=== PATIENT | male | born 1960 | race Caucasian/White ===

== ENCOUNTER 2016-05-04 01:14 | Emergency (ER) | payer BC ==
[~2016-05-04 01:14] MED LIST: FISH1000 PO; LISI-538 PO; TYLE325T5 PO; VITA100066 PO
[2016-05-04] MEDS ORDERED: MORPHINE 4 MG/ML 1ML SYRINGE As Ordered ONE ×2 (02:26→05:21)
[2016-05-04] MEDS ORDERED: ONDANSETRON 4MG/2ML VIAL (J2405) As Ordered ONE (02:26)
[2016-05-04 02:34] LABS: BASO # 0.1 K/mm3 (0.0-0.2); BASO % 0.6 % (0.0-1.0); EOS # 0.2 K/mm3 (0.0-0.50); EOS % 1.8 % (0.0-3.0); LARGE UNSTAINED CELL # 0.1 K/mm3 (0.0-0.4); LARGE UNSTAINED CELL % 1.4 % (0.0-4.0); LYMPH # 0.9 K/mm3 (1.5-4.5); LYMPH % 8.9 % (24.0-44.0); MEAN CORPUSCULAR HEMOGLOBIN 27.8 pg (27.0-33.0); MEAN CORPUSCULAR HGB CONC 32.8 g/dl (32.0-36.5); MEAN CORPUSCULAR VOLUME 84.7 fl (80.0-96.0); MONO # 0.5 K/mm3 (0.0-0.8); NEUTROPHILS # 7.8 K/mm3 (1.8-7.7); NEUTROPHILS % 82.3 % (36.0-66.0); PLATELET COUNT, AUTOMATED 255 k/mm3 (150-450); WHITE BLOOD COUNT 9.5 K/mm3 (4.0-10.0)
[2016-05-04 02:42] LABS: INR 0.99
[2016-05-04 02:56] LABS: ALBUMIN 3.9 GM/DL (3.2-5.2); ALBUMIN/GLOBULIN RATIO 0.98 (1.00-1.93); ALKALINE PHOSPHATASE 143 U/L (45-117); ALT/SGPT 34 U/L (12-78); AMYLASE 58 U/L (25-115); ANION GAP 9 MEQ/L (8-16); AST/SGOT 35 U/L (15-37); BILIRUBIN,DIRECT 0.1 MG/DL (0.0-0.2); BILIRUBIN,TOTAL 0.4 MG/DL (0.2-1.0); BLOOD UREA NITROGEN 12 MG/DL (7-18); CALCIUM LEVEL 8.7 MG/DL (8.5-10.1); CARBON DIOXIDE LEVEL 26 MEQ/L (21-32); CHLORIDE LEVEL 103 MEQ/L (98-107); CREATININE FOR GFR 0.96 MG/DL (0.70-1.30); GLOMERULAR FILTRATION RATE > 60.0 (>56); GLUCOSE, FASTING 158 MG/DL (70-105); POTASSIUM SERUM 4.2 MEQ/L (3.5-5.1); SODIUM LEVEL 138 MEQ/L (136-145); TOTAL PROTEIN 7.9 GM/DL (6.4-8.2)
[2016-05-04] MEDS ORDERED: ISOVUE-370 76% 100ML VIAL (Q9967) As Ordered ONE (04:34)
--- NOTE | 2016-05-04 06:00 | REPUSA ---
CLINICAL HISTORY: Abdominal pain. TECHNIQUE: Multiple axial, sagittal and coronal CT images were obtained through the abdomen and pelvi s after administration of oral and intravenous contrast material. COMMENTS: The liver is mildly enlarged with decreased attenuation without mass or defect. There is no intra or extrahepatic biliary ductal dilatation. The spleen is normal. The gallbladder is within normal limits . The pancreas is of normal contour and attenuation characteristics. There is no evidence of adrenal mass. Both kidneys demonstrate prompt and equal nephrograms. The kidneys are normal in size, shape and conf iguration. There is no evidence of renal or ureteral mass. No renal or ureteral calculi are identifie d. There is no hydroureter or hydronephrosis. No evidence for appendicitis. There is no bowel wall thickening. No evidence for small or large rand l obstruction. Moderate enlargement of mesenteric lymph nodes with the largest measuring 5.3 cm. Mode rately enlarged retroperitoneal lymph nodes the largest measuring 4.1 cm. Peripancreatic enlarged lym ph nodes. The largest measures 3.2 cm. There is no evidence of intrinsic or extrinsic bladder mass. There is no pelvic ascites or lymphadeno zoey. Uncomplicated clonic diverticulosis. Bilateral fat containing inguinal hernias without incarce ration. Small amount of free fluid in the left inguinal hernia. Images of the lung bases show no evidence of pleural or parenchymal mass. There are no pleural effusi ons. Bilateral basilar atelectatic pulmonary changes. The bony structures are free of lytic or blastic lesions. Multilevel degenerative changes are seen in volving the thoracolumbar spine. Scattered calcifications are seen involving the aorta and major bran ches compatible with atherosclerosis. IMPRESSION: Mild hepatomegaly with fat infiltration. Moderate-sized central mesenteric, peripancreatic and retroperitoneal lymphadenopathy. Central mesenteric thickening and fat stranding. Uncomplicated chronic diverticulosis. Thank you for your kind referral of this patient.
--- NOTE | 2016-05-04 08:08 | EDDOCDS ---
Nurse's Notes [facility] Name: Marcell Prieto Age: 55 yrs Sex: Male : 1960 Arrival Date: 05/04/2016 Time: 01:14 Bed 17 Private MD: Diagnosis: Retention of urine Presentation: 05/04 01:19 Presenting complaint: Patient states: abdominal pain since yesterday afternoon no cz relief with morphine tabs history on lesions which have gotten larger pt is due for another biopsy. Adult Sepsis Screening: The patient does not have new or worsening altered mentation. Patient's respiratory rate is less than 22. Systolic blood pressure is greater than 100. Patient has a qSOFA score of 0- Negative Sepsis Screen. Suicide/Homicide risk assessment- the patient denies having any suicidal and/or homicidal ideations and does not present with any other emotional, behavioral or mental health complaints. Status: Patient is not a alarm service technician or dependent. Transition of care: patient was not received from another setting of care. 01:19 Acuity: MERCEDEZ Level 3 cz 01:19 Method Of Arrival: Walkin/Carried/Asstd cz Triage Assessment: 01:24 General: Appears uncomfortable. Pain: Location: abdomen Pain currently is 10 out of 10 cz on a pain scale. HIV screening NA for this visit Offered previously. Historical: - Allergies: No known drug Allergies; - Home Meds: 1. lisinopril 20 mg Oral tab 1 tab once daily 2. morphine 15 mg Oral tab every 4 hours (Last dose: 05/03/2016 23:00) - PMHx: Hypertension; abdominal lesions; - PSHx: biopsy; - Social history: Smoking status: Patient states was never smoker of tobacco. No barriers to communication noted, The patient speaks fluent Setswana, Speaks appropriately for age. - Family history: Not pertinent. - : The pt / caregiver states he / she is not on anticoagulants. Home medication list is obtained from the patient. - Exposure Risk Screening:: None identified. Screenin:36 Screening information is obtained from the patient. Fall risk: No risks identified. lf1 Assistance ADL's: requires no assistance with activities of daily living. Abuse/DV Screen: The patient / caregiver reports he/she is: not in a situation that causes fear, pain or injury. 05:16 Nutritional screening: No deficits noted. lf1 07:53 Advance Directives: There is no active DNR order. home support is adequate. js13 Assessment: 02:36 General: Appears uncomfortable, Behavior is cooperative. Pain: Location: abdomen Pain lf1 currently is 10 out of 10 on a pain scale. Neurological: Level of Consciousness is awake, alert. EENT: No deficits noted. Cardiovascular: Chest pain is denied. Respiratory: Respiratory effort is even, unlabored. GI: Abdomen is non- distended Bowel sounds present X 4 quads. Abd is soft Abd is tender to palpation in right upper quadrant, left upper quadrant, right lower quadrant and left lower quadrant Reports lower abdominal pain, upper abdominal pain, nausea, Denies diarrhea. : Reports Difficulty starting and stopping. Derm: Skin is normal. 03:30 General: Appears in no apparent distress, comfortable. Respiratory: Respiratory effort lf1 is even, unlabored. 05:16 General: Appears in no apparent distress, comfortable, Behavior is cooperative. Pain: lf1 Location: abdomen Pain currently is 5 out of 10 on a pain scale. Neurological: Level of Consciousness is awake, alert, Oriented to person, place, time. Respiratory: Respiratory effort is even, unlabored. : Reports he has been unable to provide urine sample. 06:36 General: Appears in no apparent distress, comfortable, Behavior is cooperative. Pain: lf1 Location: abdomen and back. 06:40 Neurological: Level of Consciousness is awake, alert. Respiratory: Respiratory effort lf1 is even, unlabored. GI: Denies nausea, vomiting. 08:04 General: Appears in no apparent distress, comfortable, Behavior is appropriate for age, js13 cooperative. Pain: Pain currently is 2 out of 10 on a pain scale. Neurological: Level of Consciousness is awake, alert. Cardiovascular: Chest pain is denied. Respiratory: Airway is patent Respiratory effort is even, unlabored. : Catheter in place and patient will be discharged with it in. Derm: Skin is pink, warm & dry. Vital Signs: 01:24 BP 138 / 97; Pulse 87; Resp 16; Temp 95.9(T); Pulse Ox 96% on R/A; Weight 90.72 kg; cz Height 5 ft. 9 in. (175.26 cm); 02:36 BP 124 / 76; Pulse 78; Resp 18; Pulse Ox 98% ; Pain 10/10; lf1 05:07 BP 131 / 84; Pulse 72; Resp 20; Temp 97.6(O); Pulse Ox 94% on R/A; Pain 5/10; jmv 07:53 BP 128 / 78; Pulse 76; Resp 16; Temp 97.8(O); Pulse Ox 98% on R/A; js13 01:24 Body Mass Index 29.53 (90.72 kg, 175.26 cm) Vitals: 01:24 Log In Time: May 04, 2016 at 01:14. cz ED Course: 01:16 Patient visited by Nohemi Muhammad. gjb 01:16 Patient moved to Waiting gjb 01:22 Triage Initiated cz 01:25 Patient moved to 17 cz 01:49 Kj Arizmendi DO is Attending Physician. mm11 01:49 Patient visited by Kj Arizmendi DO. mm11 02:07 Patient visited by Kj Arizmendi DO. mm11 02:17 Prothrombin Time Profile\E\INR Sent. lf1 02:17 Partial Thromboplastin Time Sent. lf1 02:17 Liver Profile Sent. lf1 02:17 Lipase Sent. lf1 02:17 CBC with Diff Sent. lf1 02:19 Basic Metabolic Profile Sent. lf1 02:19 Amylase Sent. lf1 02:36 Inserted saline lock: 20 gauge in left antecubital area and blood collected. The lf1 patient tolerated the procedure well. Labs drawn. (by ED staff). Sent per order to lab. 02:39 Patient visited by Gely Aguirre RN. lf1 03:50 Patient visited by Kj Arizmendi DO. mm11 05:08 Patient visited by Isaiah Interiano PCA. jmv 05:16 The patient / caregiver is instructed regarding the plan of care and ED course. lf1 05:28 Patient visited by Gely Aguirre RN. lf1 05:31 [facility] Payment Agreement was scanned into [employer] and attached to record. gjb 06:11 CT ABD & PELVIS: IV Contrast Only Returned. EDMS 06:38 Bladder Scan completed Results: 907 ML - provider notified. lf1 06:41 Patient visited by Gely Aguirre RN. lf1 06:56 Urinalysis Sent. cp1 06:56 Urine Culture Sent. cp1 06:57 Patient visited by Mayela Becerra LPN. cp1 06:57 Khan cath inserted 16 Fr. Balloon inflated. To gravity drainage. Urine specimen cp1 collected. 07:05 Report given to Megan Tejada RN. lf1 07:46 Patient visited by Kj Arizmendi DO. mm11 07:47 Hardy Raymond is Referral Physician. mm11 07:53 Discontinued IV lock intact, bleeding controlled, pressure dressing applied, No js13 redness/swelling at site. No procedures done that require assistance. Administered Medications: 02:35 Drug: NS 0.9% 1000 ml [sodium chloride 0.9 % intravenous solution] Route: IV; Rate: lf1 bolus; Site: left antecubital; 05:17 Follow up: IV Status: Completed infusion; IV Intake: 1000ml 1 02:36 Drug: Ondansetron 4 mg [ondansetron HCl 2 mg/mL intravenous solution (2 mL)] Route: lf1 IVP; Site: left antecubital; 05:17 Follow up: Response: Nausea is resolved lf1 02:36 Drug: morphine 4 mg [morphine 4 mg/mL intravenous cartridge (1 mL)] Route: IVP; Site: lf1 left antecubital; 03:30 Follow up: Response: Pain is decreased 1 05:28 Drug: morphine 4 mg [morphine 4 mg/mL intravenous cartridge (1 mL)] Route: IVP; Site: 1 left antecubital; Intake: 05:17 IV: 1000.00ml; Total: 1000.00ml. lf1 Order Results: Lab Order: Amylase; SPEC'M 05/04/16 02:15 Test: AMYLASE; Value: 58; Range: 25-115; Units: U/L; Status: F Lab Order: Basic Metabolic Profile; SPEC'M 05/04/16 02:15 Test: GLUCOSE, FASTING; Value: 158; Range: 70-105; Abnormal: Above high normal; Units: MG/DL; Status: F Test: BLOOD UREA NITROGEN; Value: 12; Range: 7-18; Units: MG/DL; Status: F Test: CREATININE FOR GFR; Value: 0.96; Range: 0.70-1.30; Units: MG/DL; Status: F Test: GLOMERULAR FILTRATION RATE; Value: > 60.0; Range: >56; Status: F Test: SODIUM LEVEL; Value: 138; Range: 136-145; Units: MEQ/L; Status: F Test: POTASSIUM SERUM; Value: 4.2; Range: 3.5-5.1; Units: MEQ/L; Status: F Test: CHLORIDE LEVEL; Value: 103; Range: 98-107; Units: MEQ/L; Status: F Test: CARBON DIOXIDE LEVEL; Value: 26; Range: 21-32; Units: MEQ/L; Status: F Test: ANION GAP; Value: 9; Range: 8-16; Units: MEQ/L; Status: F Test: CALCIUM LEVEL; Value: 8.7; Range: 8.5-10.1; Units: MG/DL; Status: F Test Note: ; Units are mL/min/1.73 m2 Chronic Kidney Disease Staging per NKF: Stage I & II GFR >=60 Normal to Mildly Decreased Stage III GFR 30-59 Moderately Decreased Stage IV GFR 15-29 Severely Decreased Stage V GFR <15 Very Little GFR Left ESRD GFR <15 on MANAGER OF [employer]TER[employer]ISE Lab Order: CBC with Diff; SPEC'M 05/04/16 02:14 Test: WHITE BLOOD COUNT; Value: 9.5; Range: 4.0-10.0; Units: K/mm3; Status: F Test: RED BLOOD COUNT; Value: 5.38; Range: 4.30-6.10; Units: M/mm3; Status: F Test: HEMOGLOBIN; Value: 15.0; Range: 14.0-18.0; Units: g/dl; Status: F Test: HEMATOCRIT; Value: 45.5; Range: 42.0-52.0; Units: %; Status: F Test: MEAN CORPUSCULAR VOLUME; Value: 84.7; Range: 80.0-96.0; Units: fl; Status: F Test: MEAN CORPUSCULAR HEMOGLOBIN; Value: 27.8; Range: 27.0-33.0; Units: pg; Status: F Test: MEAN CORPUSCULAR HGB CONC; Value: 32.8; Range: 32.0-36.5; Units: g/dl; Status: F Test: RED CELL DISTRIBUTION WIDTH; Value: 13.0; Range: 11.5-14.5; Units: %; Status: F Test: PLATELET COUNT, AUTOMATED; Value: 255; Range: 150-450; Units: k/mm3; Status: F Test: NEUTROPHILS %; Value: 82.3; Range: 36.0-66.0; Abnormal: Above high normal; Units: %; Status: F Test: LYMPH %; Value: 8.9; Range: 24.0-44.0; Abnormal: Below low normal; Units: %; Status: F Test: MONO %; Value: 5.0; Range: 0.0-5.0; Units: %; Status: F Test: EOS %; Value: 1.8; Range: 0.0-3.0; Units: %; Status: F Test: BASO %; Value: 0.6; Range: 0.0-1.0; Units: %; Status: F Test: LARGE UNSTAINED CELL %; Value: 1.4; Range: 0.0-4.0; Units: %; Status: F Test: NEUTROPHILS #; Value: 7.8; Range: 1.8-7.7; Abnormal: Above high normal; Units: K/mm3; Status: F Test: LYMPH #; Value: 0.9; Range: 1.5-4.5; Abnormal: Below low normal; Units: K/mm3; Status: F Test: MONO #; Value: 0.5; Range: 0.0-0.8; Units: K/mm3; Status: F Test: EOS #; Value: 0.2; Range: 0.0-0.50; Units: K/mm3; Status: F Test: BASO #; Value: 0.1; Range: 0.0-0.2; Units: K/mm3; Status: F Test: LARGE UNSTAINED CELL #; Value: 0.1; Range: 0.0-0.4; Units: K/mm3; Status: F Lab Order: Lipase; SPEC'M 05/04/16 02:15 Test: LIPASE; Value: 159; Range: 73-393; Units: U/L; Status: F Lab Order: Liver Profile; SPEC'05/04/16 02:15 Test: AST/SGOT; Value: 35; Range: 15-37; Units: U/L; Status: F Test: ALT/SGPT; Value: 34; Range: 12-78; Units: U/L; Status: F Test: ALKALINE PHOSPHATASE; Value: 143; Range: 45-117; Abnormal: Above high normal; Units: U/L; Status: F Test: BILIRUBIN,TOTAL; Value: 0.4; Range: 0.2-1.0; Units: MG/DL; Status: F Test: BILIRUBIN,DIRECT; Value: 0.1; Range: 0.0-0.2; Units: MG/DL; Status: F Test: TOTAL PROTEIN; Value: 7.9; Range: 6.4-8.2; Units: GM/DL; Status: F Test: ALBUMIN; Value: 3.9; Range: 3.2-5.2; Units: GM/DL; Status: F Test: ALBUMIN/GLOBULIN RATIO; Value: 0.98; Range: 1.00-1.93; Abnormal: Below low normal; Status: F Lab Order: Partial Thromboplastin Time; [facility] 05/04/16 02:14 Test: PARTIAL THROMBOPLASTIN TIME; Value: 28.1; Range: 26.6-37.1; Units: SECONDS; Status: F Lab Order: Prothrombin Time Profile\E\INR; [facility] 05/04/16 02:14 Test: PROTHROMBIN TIME; Value: 13.2; Range: 12.3-14.5; Units: SECONDS; Status: F Test: INR; Value: 0.99; Status: F Test Note: ; THERAPUTIC HUMAN INR VALUES INDICATIONS NORMAL RANGES PROPHYLAXIS/TREATMENT OF: VENOUS THROMBOSIS 2.0-3.0 PULMONARY EMBOLISM 2.0-3.0 PREVENTION OF SYSTEMIC EMBOLISM FROM: TISSUE HEART VALVES 2.0-3.0 ACUTE MYOCARDIAL INFARCTION 2.0-3.0 VALVULAR HEART DISEASE 2.0-3.0 ATRIAL FIBRILLATION 2.0-3.0 MECHANICAL VALVES(HIGH RISK) 2.5-3.5 RECURRENT MYOCARDIAL INFARCTION 2.5-3.5 Lab Order: Urinalysis; [facility]/04[facility] 06:52 Test: APPEARANCE, URINE; Value: CLEAR; Range: CLEAR; Status: F Test: COLOR, URINE; Value: YELLOW; Range: YELLOW; Status: F Test: PH,URINE; Value: 5.0; Range: 5.0-9.0; Units: UNITS; Status: F Test: SPECIFIC GRAVITY URINE AUTO; Value: 1.019; Range: 1.002-1.035; Status: F Test: PROTEIN, URINE AUTO; Value: NEGATIVE; Range: NEGATIVE; Units: mg/dL; Status: F Test: GLUCOSE, URINE (UA) AUTO; Value: NEGATIVE; Range: NEGATIVE; Units: mg/dL; Status: F Test: KETONE, URINE AUTO; Value: NEGATIVE; Range: NEGATIVE; Units: mg/dL; Status: F Test: UROBILINOGEN, URINE AUTO; Value: 0.2; Range: 0.0-2.0; Units: mg/dL; Status: F Test: BILIRUBIN, URINE AUTO; Value: NEGATIVE; Range: NEGATIVE; Status: F Test: NITRITE, URINE AUTO; Value: NEGATIVE; Range: NEGATIVE; Status: F Test: LEUKOCYTE ESTERASE, URINE AUTO; Value: NEGATIVE; Range: NEGATIVE; Status: F Test: BLOOD, URINE BLOOD; Value: NEGATIVE; Range: NEGATIVE; Status: F Test: WBC, URINE AUTO; Value: 0; Range: 0-3; Units: /HPF; Status: F Test: RBC, URINE AUTO; Value: 3; Range: 0-3; Units: /HPF; Status: F Test: BACTERIA, URINE AUTO; Value: NEGATIVE; Range: NEGATIVE; Status: F Test: SQUAMOUS EPITHELIAL CELL UR AU; Value: 0; Range: 0-6; Units: /HPF; Status: F Test: MUCUS, URINE; Value: SMALL; Range: NEGATIVE; Status: F Test: HYALINE CAST, URINE AUTO; Value: 0; Range: 0-1; Units: /LPF; Status: F Radiology Order: CT ABD & PELVIS: IV Contrast Only Test: CT ABD & PELVIS: IV Contrast Only REASON FOR EXAMINATION: abd pain, known masses; ; CLINICAL HISTORY: Abdominal pain.; TECHNIQUE: Multiple axial, sagittal and coronal CT images were obtained through the abdomen and pelvi; s after administration of oral and intravenous contrast material.; COMMENTS:; The liver is mildly enlarged with decreased attenuation without mass or defect. There is no intra or; extrahepatic biliary ductal dilatation. The spleen is normal. The gallbladder is within normal limits; . The pancreas is of normal contour and attenuation characteristics. There is no evidence of adrenal; mass.; Both kidneys demonstrate prompt and equal nephrograms. The kidneys are normal in size, shape and conf; iguration. There is no evidence of renal or ureteral mass. No renal or ureteral calculi are identifie; d. There is no hydroureter or hydronephrosis.; No evidence for appendicitis. There is no bowel wall thickening. No evidence for small or large rand; l obstruction. Moderate enlargement of mesenteric lymph nodes with the largest measuring 5.3 cm. Mode; rately enlarged retroperitoneal lymph nodes the largest measuring 4.1 cm. Peripancreatic enlarged lym; ph nodes. The largest measures 3.2 cm.; There is no evidence of intrinsic or extrinsic bladder mass. There is no pelvic ascites or lymphadeno; zoey. Uncomplicated clonic diverticulosis. Bilateral fat containing inguinal hernias without incarce; ration. Small amount of free fluid in the left inguinal hernia.; Images of the lung bases show no evidence of pleural or parenchymal mass. There are no pleural effusi; ons. Bilateral basilar atelectatic pulmonary changes.; The bony structures are free of lytic or blastic lesions. Multilevel degenerative changes are seen in; volving the thoracolumbar spine. Scattered calcifications are seen involving the aorta and major bran; ches compatible with atherosclerosis.; IMPRESSION:; Mild hepatomegaly with fat infiltration.; Moderate-sized central mesenteric, peripancreatic and retroperitoneal lymphadenopathy.; Central mesenteric thickening and fat stranding.; Uncomplicated chronic diverticulosis.; Thank you for your kind referral of this patient.; ; Outcome: 07:48 Discharge ordered by Provider. mm11 07:53 Discharge Assessment: Patient awake, alert and oriented x 3. No cognitive and/or js13 functional deficits noted. Patient verbalized understanding of disposition instructions. patient administered narcotics - yes. Pt provided with safe discharge. The following High Risk Discharge criteria are identified: None. Discharged to home ambulatory, with significant other. Condition: stable. Discharge instructions given to patient, Instructed on discharge instructions, follow up and referral plans. Demonstrated understanding of instructions, Pt was receptive of discharge instructions/ teaching. Property :Personal belongings accompany Pt. 08:07 CT Study completed. js13 08:07 Patient left the ED. js13 Signatures: Dispatcher [employer] EDMS Jose Miguel Alvarez RN RN cz Gely Aguirre RN RN lf1 Kj Arizmendi DO DO mm11 Mayela Becerra LPN LPN cp1 Megan Tejada,RN RN js13 Nohemi Muhammadb Isaiah Interiano, LINE MAINTAINER SECTION LINE MAINTAINER SECTION jmv MTDD
--- NOTE | 2016-05-04 08:08 | EDDOCDS ---
Physician Documentation [facility] Name: Marcell Prieto Age: 55 yrs Sex: Male : 1960 Arrival Date: 05/04/2016 Time: 01:14 Bed 17 Private MD: Disposition: 05/04/16 07:48 Discharged to Home/Self Care. Impression: Retention of urine. - Condition is Stable. - Discharge Instructions: Khan Catheter Care, Adult. - Medication Reconciliation, Local Pharmacy Hours form. - Follow up: Hardy Raymond; When: 4 - 5 days; Reason: Khan removal. - Problem is an acute exacerbation. - Symptoms have improved. Historical: - Allergies: No known drug Allergies; - Home Meds: 1. lisinopril 20 mg Oral tab 1 tab once daily 2. morphine 15 mg Oral tab every 4 hours (Last dose: 05/03/2016 23:00) - PMHx: Hypertension; abdominal lesions; - PSHx: biopsy; - Social history: Smoking status: Patient states was never smoker of tobacco. No barriers to communication noted, The patient speaks fluent French, Speaks appropriately for age. - Family history: Not pertinent. - : The pt / caregiver states he / she is not on anticoagulants. Home medication list is obtained from the patient. - Exposure Risk Screening:: None identified. Vital Signs: 05/04 01:24 BP 138 / 97; Pulse 87; Resp 16; Temp 95.9(T); Pulse Ox 96% on R/A; Weight 90.72 kg / cz 200 lbs; Height 5 ft. 9 in. (175.26 cm); 02:36 BP 124 / 76; Pulse 78; Resp 18; Pulse Ox 98% ; Pain 10/10; lf1 05:07 BP 131 / 84; Pulse 72; Resp 20; Temp 97.6(O); Pulse Ox 94% on R/A; Pain 5/10; jmv 07:53 BP 128 / 78; Pulse 76; Resp 16; Temp 97.8(O); Pulse Ox 98% on R/A; js13 01:24 Body Mass Index 29.53 (90.72 kg, 175.26 cm) cz MDM: 02:06 NS 0.9% 1000 ml IV at bolus once ordered. mm11 02:06 Ondansetron 4 mg IVP once ordered. mm11 02:06 morphine 4 mg IVP every 30 minutes; Document pain score/vitals after each dose (Hold if mm11 SBP < 90mmHg) x2 ordered. 02:06 IV Saline Lock ordered. mm11 02:06 Undress patient appropriately for examination ordered. mm11 02:07 Amylase Ordered. EDMS 02:07 Basic Metabolic Profile Ordered. EDMS 02:07 CBC with Diff Ordered. EDMS 02:07 Lipase Ordered. EDMS 02:07 Liver Profile Ordered. EDMS 02:07 Partial Thromboplastin Time Ordered. EDMS 02:07 Prothrombin Time Profile\E\INR Ordered. EDMS 02:07 Urinalysis Ordered. EDMS 02:07 Urine Culture Ordered. EDMS 02:07 NOTHING BY MOUTH+DIET ordered. EDMS 02:39 CBC with Diff Reviewed. mm11 03:08 Basic Metabolic Profile Reviewed. mm11 03:08 Liver Profile Reviewed. mm11 03:08 Amylase Reviewed. mm11 03:08 Lipase Reviewed. mm11 03:08 Partial Thromboplastin Time Reviewed. mm11 03:08 Prothrombin Time Profile\E\INR Reviewed. mm11 03:09 CT ABD & PELVIS: IV Contrast Only Ordered. EDMS 03:39 Financial registration complete. hs2 05:31 [facility] Payment Agreement was scanned into [employer] and attached to record. gjb 06:18 CT ABD & PELVIS: IV Contrast Only Reviewed. mm11 06:24 Bladder Scan please ordered. mm11 06:41 Khan ordered. lf1 07:15 Urinalysis Reviewed. mm11 07:47 Misc. Nursing Order ordered. mm11 Administered Medications: 02:35 Drug: NS 0.9% 1000 ml [sodium chloride 0.9 % intravenous solution] Route: IV; Rate: lf1 bolus; Site: left antecubital; 05:17 Follow up: IV Status: Completed infusion; IV Intake: 1000ml lf1 02:36 Drug: Ondansetron 4 mg [ondansetron HCl 2 mg/mL intravenous solution (2 mL)] Route: lf1 IVP; Site: left antecubital; 05:17 Follow up: Response: Nausea is resolved lf1 02:36 Drug: morphine 4 mg [morphine 4 mg/mL intravenous cartridge (1 mL)] Route: IVP; Site: lf1 left antecubital; 03:30 Follow up: Response: Pain is decreased lf1 05:28 Drug: morphine 4 mg [morphine 4 mg/mL intravenous cartridge (1 mL)] Route: IVP; Site: lf1 left antecubital; Signatures: Dispatcher [employer] Jose Miguel Kessler, TAVO RN cz Gely Aguirre RN RN lf1 Kj Arizmendi DO DO mm11 Megan Tejada RN RN js13 Nohemi Muhammadb Jackie Iyer, Reg Reg hs2 The chart was reviewed and I authenticate all verbal orders and agree with the evaluation and treatment provided.Attachments: 05:31 [facility] Payment Agreement gjb MTDD
--- NOTE | 2016-05-06 12:35 | EDDOCDS ---
Physician Documentation [facility] Name: Marcell Prieto Age: 55 yrs Sex: Male : 1960 Arrival Date: 05/04/2016 Time: 01:14 Bed 17 Private MD: Disposition: 05/04/16 07:48 Discharged to Home/Self Care. Impression: Retention of urine. - Condition is Stable. - Discharge Instructions: Khan Catheter Care, Adult. - Medication Reconciliation, Local Pharmacy Hours form. - Follow up: Hardy Raymond; When: 4 - 5 days; Reason: Khan removal. - Problem is an acute exacerbation. - Symptoms have improved. Historical: - Allergies: No known drug Allergies; - Home Meds: 1. lisinopril 20 mg Oral tab 1 tab once daily 2. morphine 15 mg Oral tab every 4 hours (Last dose: 05/03/2016 23:00) - PMHx: Hypertension; abdominal lesions; - PSHx: biopsy; - Social history: Smoking status: Patient states was never smoker of tobacco. No barriers to communication noted, The patient speaks fluent Estonian, Speaks appropriately for age. - Family history: Not pertinent. - : The pt / caregiver states he / she is not on anticoagulants. Home medication list is obtained from the patient. - Exposure Risk Screening:: None identified. Vital Signs: 05/04 01:24 BP 138 / 97; Pulse 87; Resp 16; Temp 95.9(T); Pulse Ox 96% on R/A; Weight 90.72 kg / cz 200 lbs; Height 5 ft. 9 in. (175.26 cm); 02:36 BP 124 / 76; Pulse 78; Resp 18; Pulse Ox 98% ; Pain 10/10; lf1 05:07 BP 131 / 84; Pulse 72; Resp 20; Temp 97.6(O); Pulse Ox 94% on R/A; Pain 5/10; jmv 07:53 BP 128 / 78; Pulse 76; Resp 16; Temp 97.8(O); Pulse Ox 98% on R/A; js13 01:24 Body Mass Index 29.53 (90.72 kg, 175.26 cm) cz MDM: 02:06 NS 0.9% 1000 ml IV at bolus once ordered. mm11 02:06 Ondansetron 4 mg IVP once ordered. mm11 02:06 morphine 4 mg IVP every 30 minutes; Document pain score/vitals after each dose (Hold if mm11 SBP < 90mmHg) x2 ordered. 02:06 IV Saline Lock ordered. mm11 02:06 Undress patient appropriately for examination ordered. mm11 02:07 Amylase Ordered. EDMS 02:07 Basic Metabolic Profile Ordered. EDMS 02:07 CBC with Diff Ordered. EDMS 02:07 Lipase Ordered. EDMS 02:07 Liver Profile Ordered. EDMS 02:07 Partial Thromboplastin Time Ordered. EDMS 02:07 Prothrombin Time Profile\E\INR Ordered. EDMS 02:07 Urinalysis Ordered. EDMS 02:07 Urine Culture Ordered. EDMS 02:07 NOTHING BY MOUTH+DIET ordered. EDMS 02:39 CBC with Diff Reviewed. mm11 03:08 Basic Metabolic Profile Reviewed. mm11 03:08 Liver Profile Reviewed. mm11 03:08 Amylase Reviewed. mm11 03:08 Lipase Reviewed. mm11 03:08 Partial Thromboplastin Time Reviewed. mm11 03:08 Prothrombin Time Profile\E\INR Reviewed. mm11 03:09 CT ABD & PELVIS: IV Contrast Only Ordered. EDMS 03:39 Financial registration complete. hs2 05:31 [facility] [place] Agreement was scanned into [email or web address] and attached to record. gjb 06:18 CT ABD & PELVIS: IV Contrast Only Reviewed. mm11 06:24 Bladder Scan please ordered. mm11 06:41 Khan ordered. lf1 07:15 Urinalysis Reviewed. mm11 07:47 Misc. Nursing Order ordered. mm11 10:42 T-Sheet-- Draft Copy was scanned into [email or web address] and attached to record. seh 12:18 Radiology Report was scanned into [email or web address] and attached to record. gb Administered Medications: 02:35 Drug: NS 0.9% 1000 ml [sodium chloride 0.9 % intravenous solution] Route: IV; Rate: lf1 bolus; Site: left antecubital; 05:17 Follow up: IV Status: Completed infusion; IV Intake: 1000ml lf1 02:36 Drug: Ondansetron 4 mg [ondansetron HCl 2 mg/mL intravenous solution (2 mL)] Route: lf1 IVP; Site: left antecubital; 05:17 Follow up: Response: Nausea is resolved lf1 02:36 Drug: morphine 4 mg [morphine 4 mg/mL intravenous cartridge (1 mL)] Route: IVP; Site: lf1 left antecubital; 03:30 Follow up: Response: Pain is decreased 1 05:28 Drug: morphine 4 mg [morphine 4 mg/mL intravenous cartridge (1 mL)] Route: IVP; Site: lf1 left antecubital; Signatures: Dispatcher [employer] Jose Miguel Kessler RN RN cz Aura Jordan, Reg Reg gb Gely Aguirre RN RN lf1 Kj Arizmendi, DO DO mm11 Megan Tejada RN RN js13 Nohemi Muhammad gj Jackie Iyer, Reg Reg 2 Marifer Lau The chart was reviewed and I authenticate all verbal orders and agree with the evaluation and treatment provided.Attachments: 05:31 [facility] Payment Agreement gjaminata 10:42 T-Sheet-- Draft Copy [facility] Chart Complete MTDD
--- NOTE | 2016-05-06 12:35 | EDDOCDS ---
Nurse's Notes [facility] Name: Marcell Prieto Age: 55 yrs Sex: Male : 1960 Arrival Date: 05/04/2016 Time: 01:14 Bed 17 Private MD: Diagnosis: Retention of urine Presentation: 05/04 01:19 Presenting complaint: Patient states: abdominal pain since yesterday afternoon no cz relief with morphine tabs history on lesions which have gotten larger pt is due for another biopsy. Adult Sepsis Screening: The patient does not have new or worsening altered mentation. Patient's respiratory rate is less than 22. Systolic blood pressure is greater than 100. Patient has a qSOFA score of 0- Negative Sepsis Screen. Suicide/Homicide risk assessment- the patient denies having any suicidal and/or homicidal ideations and does not present with any other emotional, behavioral or mental health complaints. Status: Patient is not a director emergency services or dependent. Transition of care: patient was not received from another setting of care. 01:19 Acuity: MERCEDEZ Level 3 cz 01:19 Method Of Arrival: Walkin/Carried/Asstd cz Triage Assessment: 01:24 General: Appears uncomfortable. Pain: Location: abdomen Pain currently is 10 out of 10 cz on a pain scale. HIV screening NA for this visit Offered previously. Historical: - Allergies: No known drug Allergies; - Home Meds: 1. lisinopril 20 mg Oral tab 1 tab once daily 2. morphine 15 mg Oral tab every 4 hours (Last dose: 05/03/2016 23:00) - PMHx: Hypertension; abdominal lesions; - PSHx: biopsy; - Social history: Smoking status: Patient states was never smoker of tobacco. No barriers to communication noted, The patient speaks fluent Sinhala, Speaks appropriately for age. - Family history: Not pertinent. - : The pt / caregiver states he / she is not on anticoagulants. Home medication list is obtained from the patient. - Exposure Risk Screening:: None identified. Screenin:36 Screening information is obtained from the patient. Fall risk: No risks identified. lf1 Assistance ADL's: requires no assistance with activities of daily living. Abuse/DV Screen: The patient / caregiver reports he/she is: not in a situation that causes fear, pain or injury. 05:16 Nutritional screening: No deficits noted. lf1 07:53 Advance Directives: There is no active DNR order. home support is adequate. js13 Assessment: 02:36 General: Appears uncomfortable, Behavior is cooperative. Pain: Location: abdomen Pain lf1 currently is 10 out of 10 on a pain scale. Neurological: Level of Consciousness is awake, alert. EENT: No deficits noted. Cardiovascular: Chest pain is denied. Respiratory: Respiratory effort is even, unlabored. GI: Abdomen is non- distended Bowel sounds present X 4 quads. Abd is soft Abd is tender to palpation in right upper quadrant, left upper quadrant, right lower quadrant and left lower quadrant Reports lower abdominal pain, upper abdominal pain, nausea, Denies diarrhea. : Reports Difficulty starting and stopping. Derm: Skin is normal. 03:30 General: Appears in no apparent distress, comfortable. Respiratory: Respiratory effort lf1 is even, unlabored. 05:16 General: Appears in no apparent distress, comfortable, Behavior is cooperative. Pain: lf1 Location: abdomen Pain currently is 5 out of 10 on a pain scale. Neurological: Level of Consciousness is awake, alert, Oriented to person, place, time. Respiratory: Respiratory effort is even, unlabored. : Reports he has been unable to provide urine sample. 06:36 General: Appears in no apparent distress, comfortable, Behavior is cooperative. Pain: lf1 Location: abdomen and back. 06:40 Neurological: Level of Consciousness is awake, alert. Respiratory: Respiratory effort lf1 is even, unlabored. GI: Denies nausea, vomiting. 08:04 General: Appears in no apparent distress, comfortable, Behavior is appropriate for age, js13 cooperative. Pain: Pain currently is 2 out of 10 on a pain scale. Neurological: Level of Consciousness is awake, alert. Cardiovascular: Chest pain is denied. Respiratory: Airway is patent Respiratory effort is even, unlabored. : Catheter in place and patient will be discharged with it in. Derm: Skin is pink, warm & dry. Vital Signs: 01:24 BP 138 / 97; Pulse 87; Resp 16; Temp 95.9(T); Pulse Ox 96% on R/A; Weight 90.72 kg; cz Height 5 ft. 9 in. (175.26 cm); 02:36 BP 124 / 76; Pulse 78; Resp 18; Pulse Ox 98% ; Pain 10/10; lf1 05:07 BP 131 / 84; Pulse 72; Resp 20; Temp 97.6(O); Pulse Ox 94% on R/A; Pain 5/10; jmv 07:53 BP 128 / 78; Pulse 76; Resp 16; Temp 97.8(O); Pulse Ox 98% on R/A; js13 01:24 Body Mass Index 29.53 (90.72 kg, 175.26 cm) Vitals: 01:24 Log In Time: May 04, 2016 at 01:14. cz ED Course: 01:16 Patient visited by Nohemi Muhammad. gjb 01:16 Patient moved to Waiting gjb 01:22 Triage Initiated cz 01:25 Patient moved to 17 cz 01:49 Kj Arizmendi DO is Attending Physician. mm11 01:49 Patient visited by Kj Arizmendi DO. mm11 02:07 Patient visited by Kj Arizmendi DO. mm11 02:17 Prothrombin Time Profile\E\INR Sent. lf1 02:17 Partial Thromboplastin Time Sent. lf1 02:17 Liver Profile Sent. lf1 02:17 Lipase Sent. lf1 02:17 CBC with Diff Sent. lf1 02:19 Basic Metabolic Profile Sent. lf1 02:19 Amylase Sent. lf1 02:36 Inserted saline lock: 20 gauge in left antecubital area and blood collected. The lf1 patient tolerated the procedure well. Labs drawn. (by ED staff). Sent per order to lab. 02:39 Patient visited by Gely Aguirre RN. lf1 03:50 Patient visited by Kj Arizmendi DO. mm11 05:08 Patient visited by Isaiah Interiano PCA. jmv 05:16 The patient / caregiver is instructed regarding the plan of care and ED course. lf1 05:28 Patient visited by Gely Aguirre RN. lf1 05:31 [facility] Payment Agreement was scanned into [employer] and attached to record. gjb 06:11 CT ABD & PELVIS: IV Contrast Only Returned. EDMS 06:38 Bladder Scan completed Results: 907 ML - provider notified. lf1 06:41 Patient visited by Gely Aguirre RN. lf1 06:56 Urinalysis Sent. cp1 06:56 Urine Culture Sent. cp1 06:57 Patient visited by Mayela Becerra LPN. cp1 06:57 Khan cath inserted 16 Fr. Balloon inflated. To gravity drainage. Urine specimen cp1 collected. 07:05 Report given to Megan Tejada RN. lf1 07:46 Patient visited by Kj Arizmendi DO. mm11 07:47 Hardy Raymond is Referral Physician. mm11 07:53 Discontinued IV lock intact, bleeding controlled, pressure dressing applied, No js13 redness/swelling at site. No procedures done that require assistance. 10:42 T-Sheet-- Draft Copy was scanned into [employer] and attached to record. [facility] 12:18 Radiology Report was scanned into [employer] and attached to record. gb Administered Medications: 02:35 Drug: NS 0.9% 1000 ml [sodium chloride 0.9 % intravenous solution] Route: IV; Rate: lf1 bolus; Site: left antecubital; 05:17 Follow up: IV Status: Completed infusion; IV Intake: 1000ml 1 02:36 Drug: Ondansetron 4 mg [ondansetron HCl 2 mg/mL intravenous solution (2 mL)] Route: lf1 IVP; Site: left antecubital; 05:17 Follow up: Response: Nausea is resolved lf1 02:36 Drug: morphine 4 mg [morphine 4 mg/mL intravenous cartridge (1 mL)] Route: IVP; Site: 1 left antecubital; 03:30 Follow up: Response: Pain is decreased 1 05:28 Drug: morphine 4 mg [morphine 4 mg/mL intravenous cartridge (1 mL)] Route: IVP; Site: [facility] left antecubital; Intake: 05:17 IV: 1000.00ml; Total: 1000.00ml. lf1 Order Results: Lab Order: Amylase; SPEC'M 05/04/16 02:15 Test: AMYLASE; Value: 58; Range: 25-115; Units: U/L; Status: F Lab Order: Basic Metabolic Profile; SPEC'M 05/04/16 02:15 Test: GLUCOSE, FASTING; Value: 158; Range: 70-105; Abnormal: Above high normal; Units: MG/DL; Status: F Test: BLOOD UREA NITROGEN; Value: 12; Range: 7-18; Units: MG/DL; Status: F Test: CREATININE FOR GFR; Value: 0.96; Range: 0.70-1.30; Units: MG/DL; Status: F Test: GLOMERULAR FILTRATION RATE; Value: > 60.0; Range: >56; Status: F Test: SODIUM LEVEL; Value: 138; Range: 136-145; Units: MEQ/L; Status: F Test: POTASSIUM SERUM; Value: 4.2; Range: 3.5-5.1; Units: MEQ/L; Status: F Test: CHLORIDE LEVEL; Value: 103; Range: 98-107; Units: MEQ/L; Status: F Test: CARBON DIOXIDE LEVEL; Value: 26; Range: 21-32; Units: MEQ/L; Status: F Test: ANION GAP; Value: 9; Range: 8-16; Units: MEQ/L; Status: F Test: CALCIUM LEVEL; Value: 8.7; Range: 8.5-10.1; Units: MG/DL; Status: F Test Note: ; Units are mL/min/1.73 m2 Chronic Kidney Disease Staging per NKF: Stage I & II GFR >=60 Normal to Mildly Decreased Stage III GFR 30-59 Moderately Decreased Stage IV GFR 15-29 Severely Decreased Stage V GFR <15 Very Little GFR Left ESRD GFR <15 on PERINATAL TECH Lab Order: CBC with Diff; SPEC'M 05/04/16 02:14 Test: WHITE BLOOD COUNT; Value: 9.5; Range: 4.0-10.0; Units: K/mm3; Status: F Test: RED BLOOD COUNT; Value: 5.38; Range: 4.30-6.10; Units: M/mm3; Status: F Test: HEMOGLOBIN; Value: 15.0; Range: 14.0-18.0; Units: g/dl; Status: F Test: HEMATOCRIT; Value: 45.5; Range: 42.0-52.0; Units: %; Status: F Test: MEAN CORPUSCULAR VOLUME; Value: 84.7; Range: 80.0-96.0; Units: fl; Status: F Test: MEAN CORPUSCULAR HEMOGLOBIN; Value: 27.8; Range: 27.0-33.0; Units: pg; Status: F Test: MEAN CORPUSCULAR HGB CONC; Value: 32.8; Range: 32.0-36.5; Units: g/dl; Status: F Test: RED CELL DISTRIBUTION WIDTH; Value: 13.0; Range: 11.5-14.5; Units: %; Status: F Test: PLATELET COUNT, AUTOMATED; Value: 255; Range: 150-450; Units: k/mm3; Status: F Test: NEUTROPHILS %; Value: 82.3; Range: 36.0-66.0; Abnormal: Above high normal; Units: %; Status: F Test: LYMPH %; Value: 8.9; Range: 24.0-44.0; Abnormal: Below low normal; Units: %; Status: F Test: MONO %; Value: 5.0; Range: 0.0-5.0; Units: %; Status: F Test: EOS %; Value: 1.8; Range: 0.0-3.0; Units: %; Status: F Test: BASO %; Value: 0.6; Range: 0.0-1.0; Units: %; Status: F Test: LARGE UNSTAINED CELL %; Value: 1.4; Range: 0.0-4.0; Units: %; Status: F Test: NEUTROPHILS #; Value: 7.8; Range: 1.8-7.7; Abnormal: Above high normal; Units: K/mm3; Status: F Test: LYMPH #; Value: 0.9; Range: 1.5-4.5; Abnormal: Below low normal; Units: K/mm3; Status: F Test: MONO #; Value: 0.5; Range: 0.0-0.8; Units: K/mm3; Status: F Test: EOS #; Value: 0.2; Range: 0.0-0.50; Units: K/mm3; Status: F Test: BASO #; Value: 0.1; Range: 0.0-0.2; Units: K/mm3; Status: F Test: LARGE UNSTAINED CELL #; Value: 0.1; Range: 0.0-0.4; Units: K/mm3; Status: F Lab Order: Lipase; SPEC' 05/04/16 02:15 Test: LIPASE; Value: 159; Range: 73-393; Units: U/L; Status: F Lab Order: Liver Profile; SPEC'05/04/16 02:15 Test: AST/SGOT; Value: 35; Range: 15-37; Units: U/L; Status: F Test: ALT/SGPT; Value: 34; Range: 12-78; Units: U/L; Status: F Test: ALKALINE PHOSPHATASE; Value: 143; Range: 45-117; Abnormal: Above high normal; Units: U/L; Status: F Test: BILIRUBIN,TOTAL; Value: 0.4; Range: 0.2-1.0; Units: MG/DL; Status: F Test: BILIRUBIN,DIRECT; Value: 0.1; Range: 0.0-0.2; Units: MG/DL; Status: F Test: TOTAL PROTEIN; Value: 7.9; Range: 6.4-8.2; Units: GM/DL; Status: F Test: ALBUMIN; Value: 3.9; Range: 3.2-5.2; Units: GM/DL; Status: F Test: ALBUMIN/GLOBULIN RATIO; Value: 0.98; Range: 1.00-1.93; Abnormal: Below low normal; Status: F Lab Order: Partial Thromboplastin Time; [facility] 05/04/16 02:14 Test: PARTIAL THROMBOPLASTIN TIME; Value: 28.1; Range: 26.6-37.1; Units: SECONDS; Status: F Lab Order: Prothrombin Time Profile\E\INR; [facility] 05/04/16 02:14 Test: PROTHROMBIN TIME; Value: 13.2; Range: 12.3-14.5; Units: SECONDS; Status: F Test: INR; Value: 0.99; Status: F Test Note: ; THERAPUTIC HUMAN INR VALUES INDICATIONS NORMAL RANGES PROPHYLAXIS/TREATMENT OF: VENOUS THROMBOSIS 2.0-3.0 PULMONARY EMBOLISM 2.0-3.0 PREVENTION OF SYSTEMIC EMBOLISM FROM: TISSUE HEART VALVES 2.0-3.0 ACUTE MYOCARDIAL INFARCTION 2.0-3.0 VALVULAR HEART DISEASE 2.0-3.0 ATRIAL FIBRILLATION 2.0-3.0 MECHANICAL VALVES(HIGH RISK) 2.5-3.5 RECURRENT MYOCARDIAL INFARCTION 2.5-3.5 Lab Order: Urinalysis; SPEC' 05/04/16 06:52 Test: APPEARANCE, URINE; Value: CLEAR; Range: CLEAR; Status: F Test: COLOR, URINE; Value: YELLOW; Range: YELLOW; Status: F Test: PH,URINE; Value: 5.0; Range: 5.0-9.0; Units: UNITS; Status: F Test: SPECIFIC GRAVITY URINE AUTO; Value: 1.019; Range: 1.002-1.035; Status: F Test: PROTEIN, URINE AUTO; Value: NEGATIVE; Range: NEGATIVE; Units: mg/dL; Status: F Test: GLUCOSE, URINE (UA) AUTO; Value: NEGATIVE; Range: NEGATIVE; Units: mg/dL; Status: F Test: KETONE, URINE AUTO; Value: NEGATIVE; Range: NEGATIVE; Units: mg/dL; Status: F Test: UROBILINOGEN, URINE AUTO; Value: 0.2; Range: 0.0-2.0; Units: mg/dL; Status: F Test: BILIRUBIN, URINE AUTO; Value: NEGATIVE; Range: NEGATIVE; Status: F Test: NITRITE, URINE AUTO; Value: NEGATIVE; Range: NEGATIVE; Status: F Test: LEUKOCYTE ESTERASE, URINE AUTO; Value: NEGATIVE; Range: NEGATIVE; Status: F Test: BLOOD, URINE BLOOD; Value: NEGATIVE; Range: NEGATIVE; Status: F Test: WBC, URINE AUTO; Value: 0; Range: 0-3; Units: /HPF; Status: F Test: RBC, URINE AUTO; Value: 3; Range: 0-3; Units: /HPF; Status: F Test: BACTERIA, URINE AUTO; Value: NEGATIVE; Range: NEGATIVE; Status: F Test: SQUAMOUS EPITHELIAL CELL UR AU; Value: 0; Range: 0-6; Units: /HPF; Status: F Test: MUCUS, URINE; Value: SMALL; Range: NEGATIVE; Status: F Test: HYALINE CAST, URINE AUTO; Value: 0; Range: 0-1; Units: /LPF; Status: F Lab Order: Urine Culture; SPEC'M 05/04/16 06:52 Test: URINE CULTURE; Value: URINE CULTURE RESULT NO GROWTH; Status: F Radiology Order: CT ABD & PELVIS: IV Contrast Only Test: CT ABD & PELVIS: IV Contrast Only REASON FOR EXAMINATION: abd pain, known masses; ; CLINICAL HISTORY: Abdominal pain.; TECHNIQUE: Multiple axial, sagittal and coronal CT images were obtained through the abdomen and pelvi; s after administration of oral and intravenous contrast material.; COMMENTS:; The liver is mildly enlarged with decreased attenuation without mass or defect. There is no intra or; extrahepatic biliary ductal dilatation. The spleen is normal. The gallbladder is within normal limits; . The pancreas is of normal contour and attenuation characteristics. There is no evidence of adrenal; mass.; Both kidneys demonstrate prompt and equal nephrograms. The kidneys are normal in size, shape and conf; iguration. There is no evidence of renal or ureteral mass. No renal or ureteral calculi are identifie; d. There is no hydroureter or hydronephrosis.; No evidence for appendicitis. There is no bowel wall thickening. No evidence for small or large rand; l obstruction. Moderate enlargement of mesenteric lymph nodes with the largest measuring 5.3 cm. Mode; rately enlarged retroperitoneal lymph nodes the largest measuring 4.1 cm. Peripancreatic enlarged lym; ph nodes. The largest measures 3.2 cm.; There is no evidence of intrinsic or extrinsic bladder mass. There is no pelvic ascites or lymphadeno; zoey. Uncomplicated clonic diverticulosis. Bilateral fat containing inguinal hernias without incarce; ration. Small amount of free fluid in the left inguinal hernia.; Images of the lung bases show no evidence of pleural or parenchymal mass. There are no pleural effusi; ons. Bilateral basilar atelectatic pulmonary changes.; The bony structures are free of lytic or blastic lesions. Multilevel degenerative changes are seen in; volving the thoracolumbar spine. Scattered calcifications are seen involving the aorta and major bran; ches compatible with atherosclerosis.; IMPRESSION:; Mild hepatomegaly with fat infiltration.; Moderate-sized central mesenteric, peripancreatic and retroperitoneal lymphadenopathy.; Central mesenteric thickening and fat stranding.; Uncomplicated chronic diverticulosis.; Thank you for your kind referral of this patient.; ; Outcome: 07:48 Discharge ordered by Provider. mm11 07:53 Discharge Assessment: Patient awake, alert and oriented x 3. No cognitive and/or js13 functional deficits noted. Patient verbalized understanding of disposition instructions. patient administered narcotics - yes. Pt provided with safe discharge. The following High Risk Discharge criteria are identified: None. Discharged to home ambulatory, with significant other. Condition: stable. Discharge instructions given to patient, Instructed on discharge instructions, follow up and referral plans. Demonstrated understanding of instructions, Pt was receptive of discharge instructions/ teaching. Property :Personal belongings accompany Pt. 08:07 CT Study completed. js13 08:07 Patient left the ED. js13 Signatures: Dispatcher [employer] EDJose Miguel Barrera, RN RN Aura Hammond, Abel Reg Gely Taylor,RN RN lf1 Kj Arizmendi, DO DO mm11 Mayela Becerra,SYSTEMS SUPPORT SPECIALIST SYSTEMS SUPPORT SPECIALIST cp1 Megan Tejada RN RN js13 Nohemi Muhammad Sarah seh Vega, Jose, SIM ADJUNCT WRITING INSTRUCTOR jmv Chart Complete MTDD
--- NOTE | 2016-05-06 12:35 | EDDOCDS ---
Physician Documentation [facility] Name: Marcell Prieto Age: 55 yrs Sex: Male : 1960 Arrival Date: 05/04/2016 Time: 01:14 Bed 17 Private MD: Disposition: 05/04/16 07:48 Discharged to Home/Self Care. Impression: Retention of urine. - Condition is Stable. - Discharge Instructions: Khan Catheter Care, Adult. - Medication Reconciliation, Local Pharmacy Hours form. - Follow up: Hardy Raymond; When: 4 - 5 days; Reason: Khan removal. - Problem is an acute exacerbation. - Symptoms have improved. Historical: - Allergies: No known drug Allergies; - Home Meds: 1. lisinopril 20 mg Oral tab 1 tab once daily 2. morphine 15 mg Oral tab every 4 hours (Last dose: 05/03/2016 23:00) - PMHx: Hypertension; abdominal lesions; - PSHx: biopsy; - Social history: Smoking status: Patient states was never smoker of tobacco. No barriers to communication noted, The patient speaks fluent [place], Speaks appropriately for age. - Family history: Not pertinent. - : The pt / caregiver states he / she is not on anticoagulants. Home medication list is obtained from the patient. - Exposure Risk Screening:: None identified. Vital Signs: 05/04 01:24 BP 138 / 97; Pulse 87; Resp 16; Temp 95.9(T); Pulse Ox 96% on R/A; Weight 90.72 kg / cz 200 lbs; Height 5 ft. 9 in. (175.26 cm); 02:36 BP 124 / 76; Pulse 78; Resp 18; Pulse Ox 98% ; Pain 10/10; lf1 05:07 BP 131 / 84; Pulse 72; Resp 20; Temp 97.6(O); Pulse Ox 94% on R/A; Pain 5/10; jmv 07:53 BP 128 / 78; Pulse 76; Resp 16; Temp 97.8(O); Pulse Ox 98% on R/A; js13 01:24 Body Mass Index 29.53 (90.72 kg, 175.26 cm) cz MDM: 02:06 NS 0.9% 1000 ml IV at bolus once ordered. mm11 02:06 Ondansetron 4 mg IVP once ordered. mm11 02:06 morphine 4 mg IVP every 30 minutes; Document pain score/vitals after each dose (Hold if mm11 SBP < 90mmHg) x2 ordered. 02:06 IV Saline Lock ordered. mm11 02:06 Undress patient appropriately for examination ordered. mm11 02:07 Amylase Ordered. EDMS 02:07 Basic Metabolic Profile Ordered. EDMS 02:07 CBC with Diff Ordered. EDMS 02:07 Lipase Ordered. EDMS 02:07 Liver Profile Ordered. EDMS 02:07 Partial Thromboplastin Time Ordered. EDMS 02:07 Prothrombin Time Profile\E\INR Ordered. EDMS 02:07 Urinalysis Ordered. EDMS 02:07 Urine Culture Ordered. EDMS 02:07 NOTHING BY MOUTH+DIET ordered. EDMS 02:39 CBC with Diff Reviewed. mm11 03:08 Basic Metabolic Profile Reviewed. mm11 03:08 Liver Profile Reviewed. mm11 03:08 Amylase Reviewed. mm11 03:08 Lipase Reviewed. mm11 03:08 Partial Thromboplastin Time Reviewed. mm11 03:08 Prothrombin Time Profile\E\INR Reviewed. mm11 03:09 CT ABD & PELVIS: IV Contrast Only Ordered. EDMS 03:39 Financial registration complete. hs2 05:31 [facility] Payment Agreement was scanned into [employer] and attached to record. gjb 06:18 CT ABD & PELVIS: IV Contrast Only Reviewed. mm11 06:24 Bladder Scan please ordered. mm11 06:41 Khan ordered. lf1 07:15 Urinalysis Reviewed. mm11 07:47 Misc. Nursing Order ordered. mm11 10:42 T-Sheet-- Draft Copy was scanned into [employer] and attached to record. seh 12:18 Radiology Report was scanned into [employer] and attached to record. gb Administered Medications: 02:35 Drug: NS 0.9% 1000 ml [sodium chloride 0.9 % intravenous solution] Route: IV; Rate: lf1 bolus; Site: left antecubital; 05:17 Follow up: IV Status: Completed infusion; IV Intake: 1000ml lf1 02:36 Drug: Ondansetron 4 mg [ondansetron HCl 2 mg/mL intravenous solution (2 mL)] Route: lf1 IVP; Site: left antecubital; 05:17 Follow up: Response: Nausea is resolved lf1 02:36 Drug: morphine 4 mg [morphine 4 mg/mL intravenous cartridge (1 mL)] Route: IVP; Site: lf1 left antecubital; 03:30 Follow up: Response: Pain is decreased 1 05:28 Drug: morphine 4 mg [morphine 4 mg/mL intravenous cartridge (1 mL)] Route: IVP; Site: lf1 left antecubital; Signatures: Dispatcher [employer] Jose Miguel Kessler RN RN cz Aura Jordan, Reg Reg gb Gely Aguirre RN RN lf1 Kj Arizmendi, DO DO mm11 Megan Tejada RN RN js13 Nohemi Muhammad gj Jackie Iyer, Reg Reg 2 Marifer Lau The chart was reviewed and I authenticate all verbal orders and agree with the evaluation and treatment provided.Attachments: 05:31 [facility] Payment Agreement gjaminata 10:42 T-Sheet-- Draft Copy [facility] Chart Complete MTDD
== END 2016-05-04 08:07 | disposition home or self-care (01) ==
LOC: M ED 01:14
DX: R33.9 Retention of urine, unspecified (principal); I10 Essential (primary) hypertension; Z79.899 Other long term (current) drug therapy
CPT/HCPCS: 36415; 74177; 80048; 80076; 81001; 82150; 83690; 85025; 85610; 85730; 87086; 96361; 96374; 96375; 96376; 99285; J2405; Q9967

== ENCOUNTER → 2016-05-25 | Outpatient (REF) | payer BC | LOC: M LAB REF 18:46 | PROVIDERS: ATTEND Nurse Practitioner Women's Health | DX: R33.9 Retention of urine, unspecified (principal) ==

== ENCOUNTER → 2016-05-30 | Outpatient (CLI) | payer BC ==
[2016-05-30 18:17] LABS: EOS % 0.4 % (0.0-3.0); LYMPH # 0.2 K/mm3 (1.5-4.5); LYMPH % 2.8 % (24.0-44.0); MEAN CORPUSCULAR HEMOGLOBIN 27.2 pg (27.0-33.0); MEAN CORPUSCULAR VOLUME 84.9 fl (80.0-96.0); MONO # 0.2 K/mm3 (0.0-0.8); MONO % 2.6 % (0.0-5.0); NEUTROPHILS # 6.4 K/mm3 (1.8-7.7); NEUTROPHILS % 94.1 % (36.0-66.0); RED CELL DISTRIBUTION WIDTH 13.8 % (11.5-14.5); WHITE BLOOD COUNT 6.8 K/mm3 (4.0-10.0)
[2016-05-30 18:35] LABS: ALBUMIN 3.4 GM/DL (3.2-5.2); ALKALINE PHOSPHATASE 145 U/L (45-117); ALT/SGPT 27 U/L (12-78); ANION GAP 9 MEQ/L (8-16); AST/SGOT 28 U/L (15-37); BILIRUBIN,TOTAL 0.3 MG/DL (0.2-1.0); BLOOD UREA NITROGEN 19 MG/DL (7-18); CALCIUM LEVEL 8.3 MG/DL (8.5-10.1); CARBON DIOXIDE LEVEL 27 MEQ/L (21-32); CHLORIDE LEVEL 103 MEQ/L (98-107); CREATININE FOR GFR 0.87 MG/DL (0.70-1.30); GLOMERULAR FILTRATION RATE > 60.0 (>56); GLUCOSE, FASTING 183 MG/DL (70-105); POTASSIUM SERUM 4.6 MEQ/L (3.5-5.1); SODIUM LEVEL 139 MEQ/L (136-145); TOTAL PROTEIN 6.5 GM/DL (6.4-8.2)
== END ==
LOC: M WUC 15:17
PROVIDERS: ATTEND Internal Medicine
DX: C83.33 Diffuse large B-cell lymphoma, intra-abdominal lymph nodes (principal); R59.9 Enlarged lymph nodes, unspecified

== ENCOUNTER → 2016-06-09 | Outpatient (CLI) | payer BC | LOC: M WUC 09:08 | PROVIDERS: ATTEND Nurse Practitioner Women's Health | DX: Z12.5 Encounter for screening for malignant neoplasm of prostate (principal) ==

== ENCOUNTER → 2016-06-09 | Outpatient (CLI) | payer BC ==
[2016-06-09 13:44] LABS: ALBUMIN 3.6 GM/DL (3.2-5.2); ALBUMIN/GLOBULIN RATIO 1.06 (1.00-1.93); ALKALINE PHOSPHATASE 134 U/L (45-117); ALT/SGPT 32 U/L (12-78); ANION GAP 10 MEQ/L (8-16); AST/SGOT 22 U/L (15-37); BILIRUBIN,TOTAL 0.2 MG/DL (0.2-1.0); BLOOD UREA NITROGEN 14 MG/DL (7-18); CALCIUM LEVEL 8.9 MG/DL (8.5-10.1); CARBON DIOXIDE LEVEL 26 MEQ/L (21-32); CHLORIDE LEVEL 104 MEQ/L (98-107); CREATININE FOR GFR 1.07 MG/DL (0.70-1.30); GLOMERULAR FILTRATION RATE > 60.0 (>56); GLUCOSE, FASTING 118 MG/DL (70-105); POTASSIUM SERUM 5.1 MEQ/L (3.5-5.1); SODIUM LEVEL 140 MEQ/L (136-145)
[2016-06-09 13:46] LABS: BASO % 4.7 % (0.0-1.0); EOS % 4.9 % (0.0-3.0); LYMPH # 0.6 K/mm3 (1.5-4.5); LYMPH % 53.1 % (24.0-44.0); MEAN CORPUSCULAR HEMOGLOBIN 26.5 pg (27.0-33.0); MEAN CORPUSCULAR HGB CONC 30.9 g/dl (32.0-36.5); MEAN CORPUSCULAR VOLUME 85.7 fl (80.0-96.0); MONO # 0.2 K/mm3 (0.0-0.8); MONO % 17.4 % (0.0-5.0); NEUTROPHILS # 0.2 K/mm3 (1.8-7.7); NEUTROPHILS % 17.9 % (36.0-66.0); RED CELL DISTRIBUTION WIDTH 14.3 % (11.5-14.5); WHITE BLOOD COUNT 1.1 K/mm3 (4.0-10.0)
== END ==
LOC: M WUC 09:04
PROVIDERS: ATTEND Internal Medicine
DX: C83.33 Diffuse large B-cell lymphoma, intra-abdominal lymph nodes (principal); R59.9 Enlarged lymph nodes, unspecified

== ENCOUNTER → 2016-06-16 | Outpatient (CLI) | payer BC ==
[2016-06-16 18:17] LABS: ALBUMIN 3.5 GM/DL (3.2-5.2); ALBUMIN/GLOBULIN RATIO 1.13 (1.00-1.93); ALKALINE PHOSPHATASE 141 U/L (45-117); ALT/SGPT 34 U/L (12-78); ANION GAP 8 MEQ/L (8-16); AST/SGOT 25 U/L (15-37); BILIRUBIN,TOTAL 0.2 MG/DL (0.2-1.0); BLOOD UREA NITROGEN 16 MG/DL (7-18); CALCIUM LEVEL 9.6 MG/DL (8.5-10.1); CARBON DIOXIDE LEVEL 31 MEQ/L (21-32); CHLORIDE LEVEL 104 MEQ/L (98-107); CREATININE FOR GFR 0.98 MG/DL (0.70-1.30); GLOMERULAR FILTRATION RATE > 60.0 (>56); GLUCOSE, FASTING 141 MG/DL (70-105); POTASSIUM SERUM 4.3 MEQ/L (3.5-5.1); SODIUM LEVEL 143 MEQ/L (136-145); TOTAL PROTEIN 6.6 GM/DL (6.4-8.2)
[2016-06-16 19:43] LABS: BASO # 0.1 K/mm3 (0.0-0.2); BASO % 2.6 % (0.0-1.0); EOS % 0.8 % (0.0-3.0); LYMPH # 0.9 K/mm3 (1.5-4.5); LYMPH % 22.2 % (24.0-44.0); MEAN CORPUSCULAR HEMOGLOBIN 27.6 pg (27.0-33.0); MEAN CORPUSCULAR HGB CONC 32.9 g/dl (32.0-36.5); MEAN CORPUSCULAR VOLUME 83.9 fl (80.0-96.0); MONO # 0.5 K/mm3 (0.0-0.8); MONO % 12.2 % (0.0-5.0); NEUTROPHILS # 2.2 K/mm3 (1.8-7.7); NEUTROPHILS % 59.2 % (36.0-66.0); RED CELL DISTRIBUTION WIDTH 14.8 % (11.5-14.5); WHITE BLOOD COUNT 3.8 K/mm3 (4.0-10.0)
== END ==
LOC: M WUC 14:25
PROVIDERS: ATTEND Internal Medicine
DX: C83.33 Diffuse large B-cell lymphoma, intra-abdominal lymph nodes (principal); R59.9 Enlarged lymph nodes, unspecified

== ENCOUNTER → 2016-06-23 | Outpatient (CLI) | payer BC ==
[2016-06-23 16:51] LABS: BASO # 0.1 K/mm3 (0.0-0.2); BASO % 1.8 % (0.0-1.0); EOS # 0.1 K/mm3 (0.0-0.50); EOS % 1.5 % (0.0-3.0); LYMPH # 1.1 K/mm3 (1.5-4.5); LYMPH % 18.4 % (24.0-44.0); MEAN CORPUSCULAR HEMOGLOBIN 28.2 pg (27.0-33.0); MEAN CORPUSCULAR HGB CONC 33.7 g/dl (32.0-36.5); MEAN CORPUSCULAR VOLUME 83.6 fl (80.0-96.0); MONO # 0.6 K/mm3 (0.0-0.8); MONO % 10.4 % (0.0-5.0); NEUTROPHILS # 3.5 K/mm3 (1.8-7.7); NEUTROPHILS % 65.7 % (36.0-66.0); RED CELL DISTRIBUTION WIDTH 15.6 % (11.5-14.5); WHITE BLOOD COUNT 5.3 K/mm3 (4.0-10.0)
[2016-06-23 16:57] LABS: ALBUMIN 3.7 GM/DL (3.2-5.2); ALBUMIN/GLOBULIN RATIO 1.23 (1.00-1.93); ALKALINE PHOSPHATASE 115 U/L (45-117); ALT/SGPT 42 U/L (12-78); ANION GAP 8 MEQ/L (8-16); AST/SGOT 29 U/L (15-37); BILIRUBIN,TOTAL 0.2 MG/DL (0.2-1.0); BLOOD UREA NITROGEN 19 MG/DL (7-18); CALCIUM LEVEL 8.7 MG/DL (8.5-10.1); CARBON DIOXIDE LEVEL 29 MEQ/L (21-32); CHLORIDE LEVEL 105 MEQ/L (98-107); CREATININE FOR GFR 1.05 MG/DL (0.70-1.30); GLOMERULAR FILTRATION RATE > 60.0 (>56); GLUCOSE, FASTING 106 MG/DL (70-105); POTASSIUM SERUM 4.4 MEQ/L (3.5-5.1); SODIUM LEVEL 142 MEQ/L (136-145); TOTAL PROTEIN 6.7 GM/DL (6.4-8.2)
== END ==
LOC: M WUC 15:07
PROVIDERS: ATTEND Internal Medicine
DX: C83.33 Diffuse large B-cell lymphoma, intra-abdominal lymph nodes (principal); R59.9 Enlarged lymph nodes, unspecified

== ENCOUNTER → 2016-06-30 | Outpatient (CLI) | payer BC ==
[2016-06-30 20:28] LABS: ANION GAP 9 MEQ/L (8-16); BLOOD UREA NITROGEN 21 MG/DL (7-18); CARBON DIOXIDE LEVEL 28 MEQ/L (21-32); CHLORIDE LEVEL 103 MEQ/L (98-107); CREATININE FOR GFR 1.06 MG/DL (0.70-1.30); GLOMERULAR FILTRATION RATE > 60.0 (>56); GLUCOSE, FASTING 114 MG/DL (70-105); POTASSIUM SERUM 3.6 MEQ/L (3.5-5.1); SODIUM LEVEL 140 MEQ/L (136-145)
[2016-06-30 20:29] LABS: ALBUMIN 3.6 GM/DL (3.2-5.2); ALBUMIN/GLOBULIN RATIO 1.44 (1.00-1.93); ALKALINE PHOSPHATASE 117 U/L (45-117); ALT/SGPT 27 U/L (12-78); AST/SGOT 17 U/L (15-37); BILIRUBIN,TOTAL 0.6 MG/DL (0.2-1.0); CALCIUM LEVEL 7.9 MG/DL (8.5-10.1); TOTAL PROTEIN 6.1 GM/DL (6.4-8.2)
[2016-06-30 20:47] LABS: BASO % 0.3 % (0.0-1.0); EOS # 0.1 K/mm3 (0.0-0.50); EOS % 0.9 % (0.0-3.0); LYMPH # 0.8 K/mm3 (1.5-4.5); LYMPH % 12.5 % (24.0-44.0); MEAN CORPUSCULAR HEMOGLOBIN 28.1 pg (27.0-33.0); MEAN CORPUSCULAR HGB CONC 32.7 g/dl (32.0-36.5); MEAN CORPUSCULAR VOLUME 85.8 fl (80.0-96.0); MONO # 0.1 K/mm3 (0.0-0.8); MONO % 1.2 % (0.0-5.0); NEUTROPHILS # 5.4 K/mm3 (1.8-7.7); NEUTROPHILS % 84.4 % (36.0-66.0); RED CELL DISTRIBUTION WIDTH 15.5 % (11.5-14.5); WHITE BLOOD COUNT 6.4 K/mm3 (4.0-10.0)
== END ==
LOC: M WUC 17:50
PROVIDERS: ATTEND Internal Medicine
DX: C83.33 Diffuse large B-cell lymphoma, intra-abdominal lymph nodes (principal); R59.9 Enlarged lymph nodes, unspecified

== ENCOUNTER → 2016-07-07 | Outpatient (CLI) | payer BC ==
[2016-07-07 19:26] LABS: ALBUMIN 3.5 GM/DL (3.2-5.2); ALBUMIN/GLOBULIN RATIO 1.21 (1.00-1.93); ALKALINE PHOSPHATASE 127 U/L (45-117); ALT/SGPT 28 U/L (12-78); ANION GAP 10 MEQ/L (8-16); AST/SGOT 19 U/L (15-37); BILIRUBIN,TOTAL 0.2 MG/DL (0.2-1.0); BLOOD UREA NITROGEN 17 MG/DL (7-18); CALCIUM LEVEL 8.8 MG/DL (8.5-10.1); CARBON DIOXIDE LEVEL 27 MEQ/L (21-32); CHLORIDE LEVEL 103 MEQ/L (98-107); CREATININE FOR GFR 0.97 MG/DL (0.70-1.30); GLOMERULAR FILTRATION RATE > 60.0 (>56); GLUCOSE, FASTING 103 MG/DL (70-105); POTASSIUM SERUM 4.4 MEQ/L (3.5-5.1); SODIUM LEVEL 140 MEQ/L (136-145); TOTAL PROTEIN 6.4 GM/DL (6.4-8.2)
[2016-07-07 20:09] LABS: BASO # 0.1 K/mm3 (0.0-0.2); EOS # 0.1 K/mm3 (0.0-0.50); EOS % 0.9 % (0.0-3.0); LYMPH % 14.2 % (24.0-44.0); MEAN CORPUSCULAR HEMOGLOBIN 28.8 pg (27.0-33.0); MEAN CORPUSCULAR HGB CONC 33.1 g/dl (32.0-36.5); MONO # 0.6 K/mm3 (0.0-0.8); MONO % 9.2 % (0.0-5.0); NEUTROPHILS # 4.3 K/mm3 (1.8-7.7); RED CELL DISTRIBUTION WIDTH 16.3 % (11.5-14.5)
== END ==
LOC: M WUC 14:35
PROVIDERS: ATTEND Internal Medicine
DX: C83.39 Diffuse large B-cell lymphoma, extranodal and solid organ sites (principal); R59.9 Enlarged lymph nodes, unspecified

== ENCOUNTER → 2016-07-14 | Outpatient (CLI) | payer BC ==
[2016-07-14 09:08] LABS: BASO # 0.1 K/mm3 (0.0-0.2); BASO % 1.6 % (0.0-1.0); EOS % 0.4 % (0.0-3.0); LYMPH # 0.8 K/mm3 (1.5-4.5); LYMPH % 17.2 % (24.0-44.0); MEAN CORPUSCULAR HEMOGLOBIN 28.1 pg (27.0-33.0); MEAN CORPUSCULAR HGB CONC 33.7 g/dl (32.0-36.5); MEAN CORPUSCULAR VOLUME 83.6 fl (80.0-96.0); MONO # 0.5 K/mm3 (0.0-0.8); MONO % 9.7 % (0.0-5.0); NEUTROPHILS # 3.3 K/mm3 (1.8-7.7); NEUTROPHILS % 66.8 % (36.0-66.0); RED CELL DISTRIBUTION WIDTH 15.9 % (11.5-14.5); WHITE BLOOD COUNT 4.9 K/mm3 (4.0-10.0)
[2016-07-14 09:41] LABS: ALBUMIN 3.7 GM/DL (3.2-5.2); ALBUMIN/GLOBULIN RATIO 1.16 (1.00-1.93); ALKALINE PHOSPHATASE 127 U/L (45-117); ALT/SGPT 34 U/L (12-78); ANION GAP 6 MEQ/L (8-16); AST/SGOT 22 U/L (15-37); BILIRUBIN,TOTAL 0.2 MG/DL (0.2-1.0); BLOOD UREA NITROGEN 14 MG/DL (7-18); CALCIUM LEVEL 8.8 MG/DL (8.5-10.1); CARBON DIOXIDE LEVEL 26 MEQ/L (21-32); CHLORIDE LEVEL 106 MEQ/L (98-107); CREATININE FOR GFR 0.96 MG/DL (0.70-1.30); GLOMERULAR FILTRATION RATE > 60.0 (>56); GLUCOSE, FASTING 155 MG/DL (70-105); POTASSIUM SERUM 4.6 MEQ/L (3.5-5.1); SODIUM LEVEL 138 MEQ/L (136-145); TOTAL PROTEIN 6.9 GM/DL (6.4-8.2)
== END ==
LOC: M WUC 08:07
PROVIDERS: ATTEND Internal Medicine
DX: C83.33 Diffuse large B-cell lymphoma, intra-abdominal lymph nodes (principal); R59.9 Enlarged lymph nodes, unspecified

== ENCOUNTER → 2016-07-21 | Outpatient (CLI) | payer BC ==
[2016-07-21 14:35] LABS: ALBUMIN 3.5 GM/DL (3.2-5.2); ALBUMIN/GLOBULIN RATIO 1.35 (1.00-1.93); ALKALINE PHOSPHATASE 139 U/L (45-117); ALT/SGPT 27 U/L (12-78); ANION GAP 7 MEQ/L (8-16); AST/SGOT 15 U/L (15-37); BILIRUBIN,TOTAL 0.4 MG/DL (0.2-1.0); BLOOD UREA NITROGEN 20 MG/DL (7-18); CALCIUM LEVEL 8.1 MG/DL (8.5-10.1); CARBON DIOXIDE LEVEL 30 MEQ/L (21-32); CHLORIDE LEVEL 105 MEQ/L (98-107); CREATININE FOR GFR 0.98 MG/DL (0.70-1.30); GLOMERULAR FILTRATION RATE > 60.0 (>56); GLUCOSE, FASTING 132 MG/DL (70-105); POTASSIUM SERUM 3.8 MEQ/L (3.5-5.1); SODIUM LEVEL 142 MEQ/L (136-145); TOTAL PROTEIN 6.1 GM/DL (6.4-8.2)
[2016-07-21 15:03] LABS: BASO % 0.1 % (0.0-1.0); EOS % 0.1 % (0.0-3.0); LYMPH # 0.8 K/mm3 (1.5-4.5); LYMPH % 5.1 % (24.0-44.0); MEAN CORPUSCULAR HEMOGLOBIN 28.3 pg (27.0-33.0); MEAN CORPUSCULAR HGB CONC 33.1 g/dl (32.0-36.5); MEAN CORPUSCULAR VOLUME 85.5 fl (80.0-96.0); MONO # 0.1 K/mm3 (0.0-0.8); MONO % 0.6 % (0.0-5.0); NEUTROPHILS # 14.3 K/mm3 (1.8-7.7); RED CELL DISTRIBUTION WIDTH 16.2 % (11.5-14.5); WHITE BLOOD COUNT 15.2 K/mm3 (4.0-10.0)
== END ==
LOC: M WUC 11:28
PROVIDERS: ATTEND Internal Medicine
DX: C83.33 Diffuse large B-cell lymphoma, intra-abdominal lymph nodes (principal); R59.9 Enlarged lymph nodes, unspecified

== ENCOUNTER → 2016-07-28 | Outpatient (CLI) | payer BC ==
[2016-07-28 19:07] LABS: BASO # 0.1 K/mm3 (0.0-0.2); BASO % 0.9 % (0.0-1.0); EOS % 0.4 % (0.0-3.0); LYMPH % 9.1 % (24.0-44.0); MEAN CORPUSCULAR HEMOGLOBIN 28.1 pg (27.0-33.0); MEAN CORPUSCULAR VOLUME 85.3 fl (80.0-96.0); MONO # 0.6 K/mm3 (0.0-0.8); MONO % 6.8 % (0.0-5.0); NEUTROPHILS # 7.5 K/mm3 (1.8-7.7); WHITE BLOOD COUNT 9.3 K/mm3 (4.0-10.0)
[2016-07-28 19:27] LABS: ALBUMIN 3.9 GM/DL (3.2-5.2); ALBUMIN/GLOBULIN RATIO 1.34 (1.00-1.93); ALKALINE PHOSPHATASE 139 U/L (45-117); ALT/SGPT 36 U/L (12-78); ANION GAP 8 MEQ/L (8-16); AST/SGOT 28 U/L (15-37); BILIRUBIN,TOTAL 0.2 MG/DL (0.2-1.0); BLOOD UREA NITROGEN 18 MG/DL (7-18); CARBON DIOXIDE LEVEL 28 MEQ/L (21-32); CHLORIDE LEVEL 103 MEQ/L (98-107); CREATININE FOR GFR 1.29 MG/DL (0.70-1.30); GLOMERULAR FILTRATION RATE > 60.0 (>56); GLUCOSE, FASTING 123 MG/DL (70-105); POTASSIUM SERUM 4.7 MEQ/L (3.5-5.1); SODIUM LEVEL 139 MEQ/L (136-145); TOTAL PROTEIN 6.8 GM/DL (6.4-8.2)
== END ==
LOC: M WUC 14:48
PROVIDERS: ATTEND Internal Medicine
DX: C83.33 Diffuse large B-cell lymphoma, intra-abdominal lymph nodes (principal); R59.9 Enlarged lymph nodes, unspecified

== ENCOUNTER → 2016-08-04 | Outpatient (CLI) | payer BC ==
[2016-08-04 17:28] LABS: ALBUMIN/GLOBULIN RATIO 1.33 (1.00-1.93); ALKALINE PHOSPHATASE 114 U/L (45-117); ALT/SGPT 36 U/L (12-78); ANION GAP 7 MEQ/L (8-16); AST/SGOT 28 U/L (15-37); BILIRUBIN,TOTAL 0.3 MG/DL (0.2-1.0); BLOOD UREA NITROGEN 16 MG/DL (7-18); CALCIUM LEVEL 9.1 MG/DL (8.5-10.1); CARBON DIOXIDE LEVEL 26 MEQ/L (21-32); CHLORIDE LEVEL 107 MEQ/L (98-107); CREATININE FOR GFR 1.07 MG/DL (0.70-1.30); GLOMERULAR FILTRATION RATE > 60.0 (>56); GLUCOSE, FASTING 118 MG/DL (70-105); POTASSIUM SERUM 4.5 MEQ/L (3.5-5.1); SODIUM LEVEL 140 MEQ/L (136-145)
[2016-08-04 17:53] LABS: BASO # 0.1 K/mm3 (0.0-0.2); BASO % 1.6 % (0.0-1.0); EOS % 0.5 % (0.0-3.0); LYMPH # 0.9 K/mm3 (1.5-4.5); LYMPH % 12.3 % (24.0-44.0); MEAN CORPUSCULAR HEMOGLOBIN 28.3 pg (27.0-33.0); MEAN CORPUSCULAR VOLUME 85.8 fl (80.0-96.0); MONO # 0.6 K/mm3 (0.0-0.8); MONO % 9.9 % (0.0-5.0); NEUTROPHILS # 4.5 K/mm3 (1.8-7.7); NEUTROPHILS % 73.2 % (36.0-66.0); RED CELL DISTRIBUTION WIDTH 17.1 % (11.5-14.5); WHITE BLOOD COUNT 6.1 K/mm3 (4.0-10.0)
== END ==
LOC: M WUC 11:49
PROVIDERS: ATTEND Internal Medicine
DX: C83.33 Diffuse large B-cell lymphoma, intra-abdominal lymph nodes (principal); R59.9 Enlarged lymph nodes, unspecified

== ENCOUNTER → 2016-08-18 | Outpatient (CLI) | payer BC ==
[2016-08-18 12:47] LABS: BASO # 0.1 K/mm3 (0.0-0.2); BASO % 2.2 % (0.0-1.0); EOS % 0.8 % (0.0-3.0); LYMPH # 0.7 K/mm3 (1.5-4.5); LYMPH % 13.9 % (24.0-44.0); MEAN CORPUSCULAR HEMOGLOBIN 29.6 pg (27.0-33.0); MEAN CORPUSCULAR HGB CONC 33.3 g/dl (32.0-36.5); MEAN CORPUSCULAR VOLUME 88.8 fl (80.0-96.0); MONO # 0.5 K/mm3 (0.0-0.8); MONO % 9.9 % (0.0-5.0); NEUTROPHILS # 3.4 K/mm3 (1.8-7.7); NEUTROPHILS % 69.8 % (36.0-66.0); RED CELL DISTRIBUTION WIDTH 17.1 % (11.5-14.5); WHITE BLOOD COUNT 4.9 K/mm3 (4.0-10.0)
[2016-08-18 13:43] LABS: ALBUMIN 3.7 GM/DL (3.2-5.2); ALBUMIN/GLOBULIN RATIO 1.28 (1.00-1.93); ALKALINE PHOSPHATASE 127 U/L (45-117); ALT/SGPT 26 U/L (12-78); ANION GAP 7 MEQ/L (8-16); AST/SGOT 21 U/L (15-37); BILIRUBIN,TOTAL 0.2 MG/DL (0.2-1.0); BLOOD UREA NITROGEN 15 MG/DL (7-18); CALCIUM LEVEL 9.3 MG/DL (8.5-10.1); CARBON DIOXIDE LEVEL 27 MEQ/L (21-32); CHLORIDE LEVEL 106 MEQ/L (98-107); CREATININE FOR GFR 0.97 MG/DL (0.70-1.30); GLOMERULAR FILTRATION RATE > 60.0 (>56); GLUCOSE, FASTING 144 MG/DL (70-105); POTASSIUM SERUM 4.9 MEQ/L (3.5-5.1); SODIUM LEVEL 140 MEQ/L (136-145); TOTAL PROTEIN 6.6 GM/DL (6.4-8.2)
== END ==
LOC: M WUC 09:25
PROVIDERS: ATTEND Internal Medicine
DX: C83.33 Diffuse large B-cell lymphoma, intra-abdominal lymph nodes (principal); R59.9 Enlarged lymph nodes, unspecified

== ENCOUNTER → 2016-08-25 | Outpatient (CLI) | payer BC ==
[2016-08-25 13:56] LABS: BASO # 0.1 K/mm3 (0.0-0.2); BASO % 1.2 % (0.0-1.0); EOS % 0.4 % (0.0-3.0); LYMPH # 0.8 K/mm3 (1.5-4.5); LYMPH % 13.9 % (24.0-44.0); MEAN CORPUSCULAR HEMOGLOBIN 28.7 pg (27.0-33.0); MEAN CORPUSCULAR HGB CONC 32.6 g/dl (32.0-36.5); MEAN CORPUSCULAR VOLUME 88.2 fl (80.0-96.0); MONO # 0.5 K/mm3 (0.0-0.8); MONO % 11.3 % (0.0-5.0); NEUTROPHILS # 3.3 K/mm3 (1.8-7.7); NEUTROPHILS % 69.6 % (36.0-66.0); RED CELL DISTRIBUTION WIDTH 17.1 % (11.5-14.5); WHITE BLOOD COUNT 4.7 K/mm3 (4.0-10.0)
[2016-08-25 14:02] LABS: ALBUMIN 3.7 GM/DL (3.2-5.2); ALBUMIN/GLOBULIN RATIO 1.37 (1.00-1.93); ALKALINE PHOSPHATASE 119 U/L (45-117); ALT/SGPT 29 U/L (12-78); ANION GAP 4 MEQ/L (8-16); AST/SGOT 21 U/L (15-37); BILIRUBIN,TOTAL 0.2 MG/DL (0.2-1.0); BLOOD UREA NITROGEN 14 MG/DL (7-18); CALCIUM LEVEL 8.5 MG/DL (8.5-10.1); CARBON DIOXIDE LEVEL 26 MEQ/L (21-32); CHLORIDE LEVEL 110 MEQ/L (98-107); CREATININE FOR GFR 0.96 MG/DL (0.70-1.30); GLOMERULAR FILTRATION RATE > 60.0 (>56); GLUCOSE, FASTING 136 MG/DL (70-105); POTASSIUM SERUM 4.6 MEQ/L (3.5-5.1); SODIUM LEVEL 140 MEQ/L (136-145); TOTAL PROTEIN 6.4 GM/DL (6.4-8.2)
== END ==
LOC: M WUC 09:51
PROVIDERS: ATTEND Internal Medicine
DX: C83.33 Diffuse large B-cell lymphoma, intra-abdominal lymph nodes (principal); R59.9 Enlarged lymph nodes, unspecified

== ENCOUNTER → 2016-09-02 | Outpatient (CLI) | payer BC ==
[2016-09-02 18:24] LABS: BASO % 0.4 % (0.0-1.0); EOS % 0.8 % (0.0-3.0); LYMPH # 0.5 K/mm3 (1.5-4.5); LYMPH % 10.6 % (24.0-44.0); MEAN CORPUSCULAR HEMOGLOBIN 29.8 pg (27.0-33.0); MEAN CORPUSCULAR HGB CONC 34.1 g/dl (32.0-36.5); MEAN CORPUSCULAR VOLUME 87.3 fl (80.0-96.0); MONO # 0.1 K/mm3 (0.0-0.8); MONO % 1.5 % (0.0-5.0); NEUTROPHILS # 4.1 K/mm3 (1.8-7.7); NEUTROPHILS % 86.2 % (36.0-66.0); WHITE BLOOD COUNT 4.8 K/mm3 (4.0-10.0)
[2016-09-02 20:15] LABS: ALBUMIN 3.6 GM/DL (3.2-5.2); ALBUMIN/GLOBULIN RATIO 1.38 (1.00-1.93); ALKALINE PHOSPHATASE 96 U/L (45-117); ALT/SGPT 26 U/L (12-78); ANION GAP 8 MEQ/L (8-16); AST/SGOT 11 U/L (15-37); BILIRUBIN,TOTAL 0.3 MG/DL (0.2-1.0); BLOOD UREA NITROGEN 20 MG/DL (7-18); CALCIUM LEVEL 8.6 MG/DL (8.5-10.1); CARBON DIOXIDE LEVEL 32 MEQ/L (21-32); CHLORIDE LEVEL 101 MEQ/L (98-107); CREATININE FOR GFR 0.94 MG/DL (0.70-1.30); GLOMERULAR FILTRATION RATE > 60.0 (>56); GLUCOSE, FASTING 114 MG/DL (70-105); POTASSIUM SERUM 4.1 MEQ/L (3.5-5.1); SODIUM LEVEL 141 MEQ/L (136-145); TOTAL PROTEIN 6.2 GM/DL (6.4-8.2)
== END ==
LOC: M WUC 14:13
PROVIDERS: ATTEND Internal Medicine
DX: C83.33 Diffuse large B-cell lymphoma, intra-abdominal lymph nodes (principal); R59.9 Enlarged lymph nodes, unspecified

== ENCOUNTER → 2016-09-08 | Outpatient (CLI) | payer BC ==
[2016-09-08 19:05] LABS: BASO % 1.8 % (0.0-1.0); EOS % 1.1 % (0.0-3.0); LYMPH # 0.6 K/mm3 (1.5-4.5); LYMPH % 24.1 % (24.0-44.0); MEAN CORPUSCULAR HEMOGLOBIN 30.7 pg (27.0-33.0); MEAN CORPUSCULAR HGB CONC 34.8 g/dl (32.0-36.5); MEAN CORPUSCULAR VOLUME 88.2 fl (80.0-96.0); MONO # 0.3 K/mm3 (0.0-0.8); MONO % 14.6 % (0.0-5.0); NEUTROPHILS # 1.1 K/mm3 (1.8-7.7); NEUTROPHILS % 54.9 % (36.0-66.0); RED CELL DISTRIBUTION WIDTH 16.3 % (11.5-14.5)
[2016-09-08 19:35] LABS: ALBUMIN 3.6 GM/DL (3.2-5.2); ALBUMIN/GLOBULIN RATIO 1.16 (1.00-1.93); ALKALINE PHOSPHATASE 118 U/L (45-117); ALT/SGPT 28 U/L (12-78); ANION GAP 6 MEQ/L (8-16); AST/SGOT 17 U/L (15-37); BILIRUBIN,TOTAL 0.3 MG/DL (0.2-1.0); BLOOD UREA NITROGEN 13 MG/DL (7-18); CARBON DIOXIDE LEVEL 27 MEQ/L (21-32); CHLORIDE LEVEL 108 MEQ/L (98-107); CREATININE FOR GFR 1.06 MG/DL (0.70-1.30); GLOMERULAR FILTRATION RATE > 60.0 (>56); GLUCOSE, FASTING 136 MG/DL (70-105); POTASSIUM SERUM 4.6 MEQ/L (3.5-5.1); SODIUM LEVEL 141 MEQ/L (136-145); TOTAL PROTEIN 6.7 GM/DL (6.4-8.2)
== END ==
LOC: M WUC 14:19
PROVIDERS: ATTEND Internal Medicine
DX: C83.33 Diffuse large B-cell lymphoma, intra-abdominal lymph nodes (principal); R59.9 Enlarged lymph nodes, unspecified

== ENCOUNTER → 2016-09-15 | Outpatient (CLI) | payer BC ==
[2016-09-15 16:47] LABS: BASO % 1.5 % (0.0-1.0); EOS % 1.3 % (0.0-3.0); LYMPH # 0.7 K/mm3 (1.5-4.5); MEAN CORPUSCULAR HEMOGLOBIN 30.1 pg (27.0-33.0); MEAN CORPUSCULAR HGB CONC 33.7 g/dl (32.0-36.5); MEAN CORPUSCULAR VOLUME 89.5 fl (80.0-96.0); MONO # 0.5 K/mm3 (0.0-0.8); MONO % 14.5 % (0.0-5.0); NEUTROPHILS # 1.8 K/mm3 (1.8-7.7); NEUTROPHILS % 56.8 % (36.0-66.0); RED CELL DISTRIBUTION WIDTH 15.6 % (11.5-14.5); WHITE BLOOD COUNT 3.2 K/mm3 (4.0-10.0)
[2016-09-15 17:32] LABS: ALBUMIN 3.7 GM/DL (3.2-5.2); ALBUMIN/GLOBULIN RATIO 1.19 (1.00-1.93); ALKALINE PHOSPHATASE 108 U/L (45-117); ALT/SGPT 33 U/L (12-78); ANION GAP 7 MEQ/L (8-16); AST/SGOT 24 U/L (15-37); BILIRUBIN,TOTAL 0.2 MG/DL (0.2-1.0); BLOOD UREA NITROGEN 13 MG/DL (7-18); CALCIUM LEVEL 8.8 MG/DL (8.5-10.1); CARBON DIOXIDE LEVEL 25 MEQ/L (21-32); CHLORIDE LEVEL 105 MEQ/L (98-107); CREATININE FOR GFR 0.96 MG/DL (0.70-1.30); GLOMERULAR FILTRATION RATE > 60.0 (>56); GLUCOSE, FASTING 130 MG/DL (70-105); POTASSIUM SERUM 4.5 MEQ/L (3.5-5.1); SODIUM LEVEL 137 MEQ/L (136-145); TOTAL PROTEIN 6.8 GM/DL (6.4-8.2)
== END ==
LOC: M WUC 13:50
PROVIDERS: ATTEND Internal Medicine
DX: C83.33 Diffuse large B-cell lymphoma, intra-abdominal lymph nodes (principal); R59.9 Enlarged lymph nodes, unspecified

== ENCOUNTER → 2016-09-29 | Outpatient (CLI) | payer BC ==
[2016-09-29 09:55] LABS: ALBUMIN 3.4 GM/DL (3.2-5.2); ALBUMIN/GLOBULIN RATIO 1.17 (1.00-1.93); ALKALINE PHOSPHATASE 138 U/L (45-117); ALT/SGPT 27 U/L (12-78); ANION GAP 6 MEQ/L (8-16); AST/SGOT 19 U/L (15-37); BILIRUBIN,TOTAL 0.2 MG/DL (0.2-1.0); BLOOD UREA NITROGEN 14 MG/DL (7-18); CALCIUM LEVEL 9.3 MG/DL (8.5-10.1); CARBON DIOXIDE LEVEL 27 MEQ/L (21-32); CHLORIDE LEVEL 106 MEQ/L (98-107); CREATININE FOR GFR 0.83 MG/DL (0.70-1.30); GLOMERULAR FILTRATION RATE > 60.0 (>56); GLUCOSE, FASTING 158 MG/DL (70-105); POTASSIUM SERUM 4.9 MEQ/L (3.5-5.1); SODIUM LEVEL 139 MEQ/L (136-145); TOTAL PROTEIN 6.3 GM/DL (6.4-8.2)
[2016-09-29 10:15] LABS: MEAN CORPUSCULAR HGB CONC 34.1 g/dl (32.0-36.5); MEAN CORPUSCULAR VOLUME 90.9 fl (80.0-96.0); RED CELL DISTRIBUTION WIDTH 14.7 % (11.5-14.5); WHITE BLOOD COUNT 4.4 K/mm3 (4.0-10.0)
[2016-09-29 10:16] LABS: BASO % 1.5 % (0.0-1.0); EOS % 0.4 % (0.0-3.0); LYMPH # 0.7 K/mm3 (1.5-4.5); LYMPH % 15.8 % (24.0-44.0); MONO # 0.4 K/mm3 (0.0-0.8); NEUTROPHILS % 69.9 % (36.0-66.0)
[2016-09-29 10:17] LABS: BASO # 0.1 K/mm3 (0.0-0.2)
== END ==
LOC: M WUC 08:03
PROVIDERS: ATTEND Internal Medicine
DX: C83.33 Diffuse large B-cell lymphoma, intra-abdominal lymph nodes (principal); R59.9 Enlarged lymph nodes, unspecified

== ENCOUNTER → 2017-04-21 | Outpatient (CLI) | payer BC ==
[2017-04-21 09:00] LABS: EOS # 0.3 10^3/uL (0.0-0.50); EOS % 7.2 % (0.0-3.0); IMMATURE GRANULOCYTE % 0.2 % (0-0); LYMPH # 0.6 10^3/uL (1.5-4.5); LYMPH % 14.1 % (24.0-44.0); MEAN CORPUSCULAR HEMOGLOBIN 30.7 pg (27.0-33.0); MEAN CORPUSCULAR HGB CONC 33.7 g/dl (32.0-36.5); MONO # 0.7 10^3/uL (0.0-0.8); MONO % 17.6 % (0.0-5.0); NEUTROPHILS # 2.4 10^3/uL (1.8-7.7); NEUTROPHILS % 59.9 % (36.0-66.0); PLATELET COUNT, AUTOMATED 196 10^3/uL (150-450); RED CELL DISTRIBUTION WIDTH 12.6 % (11.5-14.5)
[2017-04-21 09:13] LABS: ALBUMIN 3.8 GM/DL (3.2-5.2); ALKALINE PHOSPHATASE 117 U/L (45-117); ANION GAP 6 MEQ/L (8-16); BILIRUBIN,TOTAL 0.3 MG/DL (0.2-1.0); CALCIUM LEVEL 8.4 MG/DL (8.5-10.1); CARBON DIOXIDE LEVEL 27 MEQ/L (21-32); CHLORIDE LEVEL 108 MEQ/L (98-107); CREATININE FOR GFR 0.81 MG/DL (0.70-1.30); GLOMERULAR FILTRATION RATE > 60.0 (>56); GLUCOSE, FASTING 149 MG/DL (70-105); POTASSIUM SERUM 4.8 MEQ/L (3.5-5.1); SODIUM LEVEL 141 MEQ/L (136-145)
[2017-04-21 09:56] LABS: ALBUMIN/GLOBULIN RATIO 1.27 (1.00-1.93); ALT/SGPT 44 U/L (12-78); AST/SGOT 30 U/L (7-37); BLOOD UREA NITROGEN 16 MG/DL (7-18); TOTAL PROTEIN 6.8 GM/DL (6.4-8.2)
== END ==
LOC: M WUC 08:08
PROVIDERS: ATTEND Internal Medicine
DX: C83.33 Diffuse large B-cell lymphoma, intra-abdominal lymph nodes (principal); R59.9 Enlarged lymph nodes, unspecified

== ENCOUNTER → 2017-08-20 | Outpatient (CLI) | payer BC ==
[2017-08-20 16:59] LABS: BASO # 0.1 10^3/uL (0.0-0.2); BASO % 1.3 % (0.0-1.0); EOS # 0.1 10^3/uL (0.0-0.50); EOS % 3.1 % (0.0-3.0); HEMATOCRIT 40.5 % (42.0-52.0); HEMOGLOBIN 13.5 g/dl (13.5-17.5); IMMATURE GRANULOCYTE % 0.3 % (0-3.0); LYMPH # 0.8 10^3/uL (1.5-4.5); LYMPH % 19.9 % (24.0-44.0); MEAN CORPUSCULAR HEMOGLOBIN 30.3 pg (27.0-33.0); MEAN CORPUSCULAR HGB CONC 33.3 g/dl (32.0-36.5); MONO # 0.5 10^3/uL (0.0-0.8); MONO % 11.9 % (0.0-5.0); NEUTROPHILS # 2.5 10^3/uL (1.8-7.7); NEUTROPHILS % 63.5 % (36.0-66.0); PLATELET COUNT, AUTOMATED 171 10^3/uL (150-450); RED BLOOD COUNT 4.45 10^6/uL (4.30-6.10); RED CELL DISTRIBUTION WIDTH 13.1 % (11.5-14.5); WHITE BLOOD COUNT 3.9 10^3/uL (4.0-10.0)
[2017-08-20 17:22] LABS: ALBUMIN 4.1 GM/DL (3.2-5.2); ALBUMIN/GLOBULIN RATIO 1.41 (1.00-1.93); ALKALINE PHOSPHATASE 91 U/L (45-117); ALT/SGPT 45 U/L (12-78); ANION GAP 7 MEQ/L (8-16); AST/SGOT 29 U/L (7-37); BILIRUBIN,TOTAL 0.4 MG/DL (0.2-1.0); BLOOD UREA NITROGEN 19 MG/DL (7-18); CALCIUM LEVEL 9.3 MG/DL (8.5-10.1); CARBON DIOXIDE LEVEL 26 MEQ/L (21-32); CHLORIDE LEVEL 107 MEQ/L (98-107); CREATININE FOR GFR 0.95 MG/DL (0.70-1.30); GLOMERULAR FILTRATION RATE > 60.0 (>56); GLUCOSE, FASTING 102 MG/DL (70-100); LDH LACTATE DEHYDROGENASE 145 U/L (87-241); POTASSIUM SERUM 4.7 MEQ/L (3.5-5.1); SODIUM LEVEL 140 MEQ/L (136-145)
== END ==
LOC: M WUC 12:02
DX: C83.33 Diffuse large B-cell lymphoma, intra-abdominal lymph nodes (principal); R59.9 Enlarged lymph nodes, unspecified

== ENCOUNTER → 2018-06-10 | Outpatient (CLI) | payer BC ==
[2018-06-10 19:44] LABS: BASO # 0.1 10^3/uL (0.0-0.2); BASO % 0.6 % (0.0-1.0); EOS # 0.1 10^3/uL (0.0-0.50); EOS % 1.6 % (0.0-3.0); HEMOGLOBIN 14.7 g/dl (13.5-17.5); LYMPH # 1.2 10^3/uL (1.5-4.5); LYMPH % 14.6 % (24.0-44.0); MEAN CORPUSCULAR HEMOGLOBIN 29.7 pg (27.0-33.0); MEAN CORPUSCULAR HGB CONC 33.4 g/dl (32.0-36.5); MEAN CORPUSCULAR VOLUME 88.9 fl (80.0-96.0); MONO # 0.7 10^3/uL (0.0-0.8); MONO % 9.1 % (0.0-5.0); NEUTROPHILS # 5.8 10^3/uL (1.8-7.7); NEUTROPHILS % 73.7 % (36.0-66.0); PLATELET COUNT, AUTOMATED 160 10^3/uL (150-450); RED BLOOD COUNT 4.95 10^6/uL (4.30-6.10); WHITE BLOOD COUNT 7.9 10^3/uL (4.0-10.0)
[2018-06-10 19:56] LABS: ALBUMIN 4.2 GM/DL (3.2-5.2); ALT/SGPT 48 U/L (12-78); BILIRUBIN,TOTAL 0.4 MG/DL (0.2-1.0); BLOOD UREA NITROGEN 20 MG/DL (7-18); CARBON DIOXIDE LEVEL 27 MEQ/L (21-32); CHLORIDE LEVEL 103 MEQ/L (98-107); CREATININE FOR GFR 0.98 MG/DL (0.70-1.30); GLOMERULAR FILTRATION RATE > 60.0 (>56); GLUCOSE, FASTING 99 MG/DL (70-100); POTASSIUM SERUM 4.4 MEQ/L (3.5-5.1); SODIUM LEVEL 138 MEQ/L (136-145); TOTAL PROTEIN 7.4 GM/DL (6.4-8.2)
== END ==
LOC: M WUC 15:46
PROVIDERS: ATTEND Physician Assistant
DX: A08.4 Viral intestinal infection, unspecified (principal)

== ENCOUNTER → 2018-08-27 | Outpatient (CLI) | payer BC ==
[2018-08-27 18:19] LABS: BASO # 0.1 10^3/uL (0.0-0.2); BASO % 1.1 % (0.0-1.0); EOS # 0.1 10^3/uL (0.0-0.50); EOS % 2.2 % (0.0-3.0); HEMOGLOBIN 13.6 g/dl (13.5-17.5); LYMPH # 1.4 10^3/uL (1.5-4.5); LYMPH % 30.4 % (24.0-44.0); MEAN CORPUSCULAR HEMOGLOBIN 30.2 pg (27.0-33.0); MEAN CORPUSCULAR HGB CONC 33.2 g/dl (32.0-36.5); MEAN CORPUSCULAR VOLUME 90.9 fl (80.0-96.0); MONO # 0.5 10^3/uL (0.0-0.8); MONO % 11.3 % (0.0-5.0); NEUTROPHILS # 2.5 10^3/uL (1.8-7.7); NEUTROPHILS % 54.6 % (36.0-66.0); PLATELET COUNT, AUTOMATED 159 10^3/uL (150-450); RED BLOOD COUNT 4.51 10^6/uL (4.30-6.10); WHITE BLOOD COUNT 4.5 10^3/uL (4.0-10.0)
[2018-08-27 18:35] LABS: ALBUMIN 3.9 GM/DL (3.2-5.2); ALT/SGPT 47 U/L (12-78); BILIRUBIN,TOTAL 0.5 MG/DL (0.2-1.0); BLOOD UREA NITROGEN 18 MG/DL (7-18); CALCIUM LEVEL 8.6 MG/DL (8.5-10.1); CARBON DIOXIDE LEVEL 29 MEQ/L (21-32); CHLORIDE LEVEL 106 MEQ/L (98-107); CREATININE FOR GFR 1.07 MG/DL (0.70-1.30); GLOMERULAR FILTRATION RATE > 60.0 (>56); GLUCOSE, FASTING 98 MG/DL (70-100); LDH LACTATE DEHYDROGENASE 171 U/L (87-241); SODIUM LEVEL 139 MEQ/L (136-145); TOTAL PROTEIN 6.4 GM/DL (6.4-8.2)
== END ==
LOC: M WUC 15:05
PROVIDERS: ATTEND Physician Assistant
DX: C83.33 Diffuse large B-cell lymphoma, intra-abdominal lymph nodes (principal); R59.9 Enlarged lymph nodes, unspecified

== ENCOUNTER → 2019-01-03 | Outpatient (CLI) | payer BC ==
[2019-01-03 20:35] LABS: BASO # 0.1 10^3/uL (0.0-0.2); EOS # 0.4 10^3/uL (0.0-0.5); HEMATOCRIT 41.2 % (42.0-52.0); HEMOGLOBIN 13.6 g/dl (13.5-17.5); LYMPH # 1.7 10^3/uL (1.5-5.0); LYMPH % 32.1 % (24.0-44.0); MEAN CORPUSCULAR HEMOGLOBIN 30.3 pg (27.0-33.0); MEAN CORPUSCULAR VOLUME 91.8 fl (80.0-96.0); MONO # 0.6 10^3/uL (0.0-0.8); MONO % 10.9 % (0.0-5.0); NEUTROPHILS # 2.5 10^3/uL (1.5-8.5); NEUTROPHILS % 47.6 % (36.0-66.0); PLATELET COUNT, AUTOMATED 142 10^3/uL (150-450); RED BLOOD COUNT 4.49 10^6/uL (4.30-6.10); WHITE BLOOD COUNT 5.2 10^3/uL (4.0-10.0)
[2019-01-03 20:38] LABS: ALBUMIN 3.7 GM/DL (3.2-5.2); ALT/SGPT 41 U/L (12-78); BILIRUBIN,TOTAL 0.4 MG/DL (0.2-1.0); BLOOD UREA NITROGEN 12 MG/DL (7-18); CALCIUM LEVEL 8.5 MG/DL (8.5-10.1); CARBON DIOXIDE LEVEL 28 MEQ/L (21-32); CHLORIDE LEVEL 106 MEQ/L (98-107); CREATININE FOR GFR 1.02 MG/DL (0.70-1.30); GLOMERULAR FILTRATION RATE > 60.0 (>56); GLUCOSE, FASTING 104 MG/DL (70-100); LDH LACTATE DEHYDROGENASE 148 U/L (87-241); POTASSIUM SERUM 4.4 MEQ/L (3.5-5.1); SODIUM LEVEL 140 MEQ/L (136-145); TOTAL PROTEIN 6.6 GM/DL (6.4-8.2)
== END ==
LOC: M WUC 16:10
PROVIDERS: ATTEND Internal Medicine
DX: C83.33 Diffuse large B-cell lymphoma, intra-abdominal lymph nodes (principal); R59.9 Enlarged lymph nodes, unspecified

== ENCOUNTER → 2019-05-05 | Outpatient (CLI) | payer BC ==
[2019-05-05 20:38] LABS: BASO # 0.1 10^3/uL (0.0-0.2); BASO % 1.2 % (0.0-1.0); EOS # 0.3 10^3/uL (0.0-0.5); EOS % 4.7 % (0.0-3.0); HEMATOCRIT 43.8 % (42.0-52.0); HEMOGLOBIN 14.3 g/dl (13.5-17.5); LYMPH % 35.1 % (24.0-44.0); MEAN CORPUSCULAR HEMOGLOBIN 29.2 pg (27.0-33.0); MEAN CORPUSCULAR HGB CONC 32.6 g/dl (32.0-36.5); MEAN CORPUSCULAR VOLUME 89.6 fl (80.0-96.0); MONO # 0.5 10^3/uL (0.0-0.8); MONO % 9.5 % (0.0-5.0); NEUTROPHILS # 2.8 10^3/uL (1.5-8.5); NEUTROPHILS % 49.3 % (36.0-66.0); PLATELET COUNT, AUTOMATED 159 10^3/uL (150-450); RED BLOOD COUNT 4.89 10^6/uL (4.30-6.10); WHITE BLOOD COUNT 5.7 10^3/uL (4.0-10.0)
[2019-05-05 20:54] LABS: ALT/SGPT 48 U/L (12-78); BILIRUBIN,TOTAL 0.4 MG/DL (0.2-1.0); BLOOD UREA NITROGEN 15 MG/DL (7-18); CARBON DIOXIDE LEVEL 25 MEQ/L (21-32); CHLORIDE LEVEL 104 MEQ/L (98-107); CREATININE FOR GFR 0.97 MG/DL (0.70-1.30); GLOMERULAR FILTRATION RATE > 60.0 (>56); GLUCOSE, FASTING 150 MG/DL (70-100); LDH LACTATE DEHYDROGENASE 155 U/L (87-241); POTASSIUM SERUM 4.4 MEQ/L (3.5-5.1); SODIUM LEVEL 139 MEQ/L (136-145); TOTAL PROTEIN 6.9 GM/DL (6.4-8.2)
== END ==
LOC: M WUC 17:43
PROVIDERS: ATTEND Physician Assistant
DX: C83.33 Diffuse large B-cell lymphoma, intra-abdominal lymph nodes (principal); R59.9 Enlarged lymph nodes, unspecified

== ENCOUNTER → 2019-06-09 | Outpatient (CLI) | payer BC ==
[2019-06-09 14:42] LABS: BLOOD UREA NITROGEN 17 MG/DL (7-18); CREATININE FOR GFR 0.91 MG/DL (0.70-1.30); GLOMERULAR FILTRATION RATE > 60.0 (>56)
[2019-06-09 14:48] LABS: TOTAL 25(OH) VITAMIN D 38.1 NG/ML (30.0-100.0)
== END ==
LOC: M WUC 09:14
PROVIDERS: ATTEND Physician Assistant
DX: C83.33 Diffuse large B-cell lymphoma, intra-abdominal lymph nodes (principal); R59.9 Enlarged lymph nodes, unspecified

== ENCOUNTER → 2021-09-13 | Outpatient (CLI) | payer BC ==
[~2021-09-13] MED LIST changes: -LISI-538 PO; +LISI20TA33 PO
[2021-09-13 12:52] LABS: ALBUMIN 3.6 GM/DL (3.2-5.2); ALT/SGPT 42 U/L (12-78); BILIRUBIN,TOTAL 0.4 MG/DL (0.2-1.0); BLOOD UREA NITROGEN 17 MG/DL (7-18); CALCIUM LEVEL 9.5 MG/DL (8.8-10.2); CARBON DIOXIDE LEVEL 26 MEQ/L (21-32); CHLORIDE LEVEL 108 MEQ/L (98-107); CHOLESTEROL LEVEL 106 MG/DL (<200); CHOLESTEROL RISK RATIO 3.533 (<5); CREATININE FOR GFR 0.92 MG/DL (0.70-1.30); GLOMERULAR FILTRATION RATE > 60.0 (>49); GLUCOSE, FASTING 105 MG/DL (70-100); HDL CHOLESTEROL 30 MG/DL (>40); LDL CHOLESTEROL 60 MG/DL (<100); NON-HDL-C 76 MG/DL; POTASSIUM SERUM 4.5 MEQ/L (3.5-5.1); SODIUM LEVEL 140 MEQ/L (136-145); TRIGLYCERIDES LEVEL 79 MG/DL (<150)
[2021-09-13 14:20] LABS: HEMOGLOBIN A1c 7.1 %
== END ==
LOC: M WUC 09:04
PROVIDERS: ATTEND Internal Medicine
DX: E78.5 Hyperlipidemia, unspecified (principal); E11.9 Type 2 diabetes mellitus without complications